=== PATIENT | female | born 1935 | race Caucasian/White ===

== ENCOUNTER → 2017-09-11 | Outpatient (CLI) | payer OTHER ==
[~2017-09-11] MED LIST: ACET-1311 PO; ACET650S10 RE; AMLO2.5T PO; ASPI81TA28 PO; ATEN-173 PO; ATROPS5 OP; ATV1 SL; BISA10SU38 PR; BUSP-8 PO; CHOL20005 PO; DRGTP12 TD; GUAI1LIQ16 PO; IMD/2 PO; IPRA-64 INH; LEVO88TA3 PO; MELA3TAB PO; MOMLX PO; NTRGSLP4 SL; POTA-639 PO; RXNS10 PO; SCOP1.5D2 TD; SODIENE PR; [UNRECOGNIZED DRUG - OTHER] PO
[2017-09-11 10:00] LABS: BASO % 1.2 %; BASO ABS # 0.08 K/uL (0-0.2); EOS % 6.1 %; HEMATOCRIT 39.1 % (37-47); HEMOGLOBIN 12.6 g/dL (12.0-16.0); IG# 0.02 K/uL (0.00-0.02); LYMPH % 22.8 %; MEAN CELL VOLUME 83.4 fL (80-100); MEAN CORPUSCULAR HEMOGLOBIN 26.9 pg (25-34); MEAN CORPUSCULAR HGB CONC 32.2 g/dl (32-36); MONO ABS # 0.79 K/uL (0.11-0.59); NEUT % 57.6 %; PLATELET COUNT 239 K/uL (130-400); RED CELL DISTRIBUTION WIDTH SD 56.8 fL (36.4-46.3); WHITE BLOOD COUNT 6.59 K/uL (4.8-10.8)
[2017-09-11 10:08] LABS: BLOOD UREA NITROGEN 16 mg/dl (7-18); CALCIUM 9.1 mg/dl (8.5-10.1); CARBON DIOXIDE 28 mmol/L (21-32); CREATININE 0.85 mg/dl (0.60-1.20); GLUCOSE 104 mg/dl (70-99); POTASSIUM 4.3 mmol/L (3.5-5.1); SODIUM 139 mmol/L (136-145)
--- NOTE | 2017-10-12 08:48 | CODING QUERY NO DIAGNOSIS ---
TREATMENT RENDERED WITHOUT A DIAGNOSIS Wallace A P MANAGER, To promote full compliance with coding requirements relating to patient care, physician participation is requested in all cases of dollyman uncertainty. Please assist us with providing a diagnosis/symptom for the test(s) below: A diagnosis/symptom was not documented on your Order. A valid diagnosis/symptom is required to bill all insurances. Please remember that we are unable to code a diagnosis of rule out, probable, possible, questionable, or suspected. Tests that require a diagnosis: * CBC W/AUTO DIFF DIAGNOSIS: * BMP DIAGNOSIS: * TSH DIAGNOSIS: DATE OF SERVICE: 09/11/17 Provider Signature: Date: Thank you Victorino Simon [facility] Information Management Once completed, please kindly fax back to [phone] For questions please call [phone]
== END | disposition home or self-care (01) ==
LOC: C.LABUPNIT 09:13
PROVIDERS: ATTEND Nurse Practitioner Family
DX: R41.82 Altered mental status, unspecified (principal); E03.9 Hypothyroidism, unspecified

== ENCOUNTER → 2017-09-18 | Outpatient (CLI) | payer OTHER ==
[2017-09-18 08:58] LABS: BLOOD UREA NITROGEN 16 mg/dl (7-18); BUN/CREATININE RATIO 20.5 (10-20); CALCIUM 8.9 mg/dl (8.5-10.1); CARBON DIOXIDE 24 mmol/L (21-32); CHLORIDE 110 mmol/L (98-107); CREATININE 0.77 mg/dl (0.60-1.20); GLUCOSE 92 mg/dl (70-99); POTASSIUM 3.9 mmol/L (3.5-5.1); SODIUM 142 mmol/L (136-145)
[2017-09-18 16:46] LABS: URINE APPEARANCE CLEAR (CLEAR); URINE BILIRUBIN NEG (NEG); URINE COLOR DK YELLOW; URINE EPITHELIAL CELL AUTO 0-5 /lpf (0-5); URINE NITRITE POS (NEG); URINE SPECIFIC GRAVITY 1.027 (1.000-1.030); UROBILINOGEN NEG (NEG)
[2017-09-18 16:47] LABS: MANUAL MICROSCOPIC REQUIRED? NO; REVIEW REQ? NO
== END ==
LOC: C.LABUPNIT 08:27
PROVIDERS: ATTEND Nurse Practitioner Family
DX: I25.119 Atherosclerotic heart disease of native coronary artery with unspecified angina pectoris (principal)

== ENCOUNTER → 2017-10-03 | Outpatient (CLI) | payer OTHER ==
[2017-10-03 19:17] LABS: URINE APPEARANCE CLEAR (CLEAR); URINE BILIRUBIN NEG (NEG); URINE COLOR YELLOW; URINE EPITHELIAL CELL AUTO 20-30 /lpf (0-5); URINE NITRITE NEG (NEG); URINE SPECIFIC GRAVITY 1.028 (1.000-1.030); UROBILINOGEN NEG (NEG)
[2017-10-03 19:20] LABS: MANUAL MICROSCOPIC REQUIRED? NO; REVIEW REQ? YES
[2017-10-03 19:46] LABS: ZZUR CULT IF INDIC CLEAN CATCH YES
== END | disposition home or self-care (01) ==
LOC: C.LABUPNIT 17:48
PROVIDERS: ATTEND Nurse Practitioner Family
DX: N39.0 Urinary tract infection, site not specified (principal)

== ENCOUNTER → 2017-10-04 | Outpatient (CLI) | payer OTHER ==
[2017-10-04 08:56] LABS: ALT/SGPT 14 U/L (12-78); AST/SGOT 20 U/L (15-37); BLOOD UREA NITROGEN 13 mg/dl (7-18); BUN/CREATININE RATIO 21.9 (10-20); CALCIUM 8.3 mg/dl (8.5-10.1); CARBON DIOXIDE 23 mmol/L (21-32); CHLORIDE 113 mmol/L (98-107); CREATININE 0.59 mg/dl (0.60-1.20); GLUCOSE 84 mg/dl (70-99); POTASSIUM 3.9 mmol/L (3.5-5.1); SODIUM 143 mmol/L (136-145)
[2017-10-04 08:58] LABS: ALB/GLOB RATIO 0.8 (0.9-2); ALKALINE PHOSPHATASE 78 U/L (45-117)
== END ==
LOC: C.LAB 08:10
PROVIDERS: ATTEND Nurse Practitioner Family
DX: I10 Essential (primary) hypertension (principal)

== ENCOUNTER → 2017-10-12 | Outpatient (CLI) | payer OTHER | LOC: C.LABUPUNI 08:06 | PROVIDERS: ATTEND Nurse Practitioner Family | DX: E03.9 Hypothyroidism, unspecified (principal) ==

== ENCOUNTER → 2017-10-16 | Outpatient (CLI) | payer OTHER ==
[2017-10-16 09:07] LABS: BLOOD UREA NITROGEN 19 mg/dl (7-18); BUN/CREATININE RATIO 32.4 (10-20); CALCIUM 8.4 mg/dl (8.5-10.1); CARBON DIOXIDE 26 mmol/L (21-32); CHLORIDE 113 mmol/L (98-107); GLUCOSE 85 mg/dl (70-99); POTASSIUM 3.6 mmol/L (3.5-5.1); SODIUM 144 mmol/L (136-145)
== END | disposition home or self-care (01) ==
LOC: C.LABUPUNI 08:43
PROVIDERS: ATTEND Nurse Practitioner Family
DX: G30.9 Alzheimer's disease, unspecified (principal); M85.0 Fibrous dysplasia (monostotic)

== ENCOUNTER 2017-10-30 04:23 | Inpatient (IN) | payer OTHER ==
[2017-10-30] VITALS (77 sets, daily range): BP systolic 58–171; BP diastolic 33–125; PULSE 62–138; TEMP 36.9–39.9; O2SAT 86–99; Ht 157.5 cm; Wt 55.2 kg
[~2017-10-30] VITALS: Ht 157.5 cm; Wt 55.2 kg
[2017-10-30] MEDS ORDERED: BUSP-8 PO (04:57)
[2017-10-30] MEDS ORDERED: ASPI81TA28 PO (04:57)
[2017-10-30] MEDS ORDERED: [UNRECOGNIZED DRUG - OTHER] PO (04:57)
[2017-10-30] MEDS ORDERED: ATEN-173 PO (04:57)
[2017-10-30] MEDS ORDERED: SODIENE PR (04:57)
[2017-10-30] MEDS ORDERED: AMLO2.5T PO (04:57)
[2017-10-30] MEDS ORDERED: CHOL20005 PO (04:57)
[2017-10-30] MEDS ORDERED: MOMLX PO (04:57)
[2017-10-30] MEDS ORDERED: ACET-1311 PO ×2 (04:57)
[2017-10-30] MEDS ORDERED: MELA3TAB PO (04:57)
[2017-10-30] MEDS ORDERED: NTRGSLP4 SL (04:57)
[2017-10-30] MEDS ORDERED: BISA10SU38 PR (04:57)
[2017-10-30] MEDS ORDERED: GUAI1LIQ16 PO (04:57)
[2017-10-30] MEDS ORDERED: IPRASOL4 INH (04:57)
[2017-10-30] MEDS ORDERED: POTA20TA16 PO (04:57)
[2017-10-30] MEDS ORDERED: ACET650S10 RE (04:57)
[2017-10-30] MEDS ORDERED: IMD/2 PO (04:57)
[2017-10-30] MEDS ORDERED: LEVO88TA3 PO (04:57)
[2017-10-30 05:06] LABS: MEAN CELL VOLUME 83.8 fL (80-100); MEAN CORPUSCULAR HEMOGLOBIN 26.7 pg (25-34); MEAN CORPUSCULAR HGB CONC 31.8 g/dl (32-36); MEAN PLATELET VOLUME 11.8 fL (7.4-10.4); PLATELET COUNT 238 K/uL (130-400); RED CELL DISTRIBUTION WIDTH CV 18.4 % (11.5-14.5); RED CELL DISTRIBUTION WIDTH SD 56.3 fL (36.4-46.3); WHITE BLOOD COUNT 22.61 K/uL (4.8-10.8)
[2017-10-30] MEDS ORDERED: CEFEPIME IV 1,000 MG in DEXTROSE 5% 100ML 100 ML IV STA (05:11)
[2017-10-30] MEDS ORDERED: LEVAQUIN 500MG / 100ML D5W IV ONE (05:15)
[2017-10-30 05:22] LABS: CALCIUM 8.8 mg/dl (8.5-10.1); CREATININE 1.44 mg/dl (0.60-1.20); POTASSIUM 4.2 mmol/L (3.5-5.1); PTT PATIENT 27.3 SECONDS (21.0-31.0)
[2017-10-30 05:28] LABS: INFLUENZA B ANTIGEN Neg for Influ B (NEG)
[2017-10-30] MEDS ORDERED: PIPERACILLIN/TAZOBACTAM 4.5 GM/100ML D5W IV STA (05:40)
[2017-10-30] MEDS ORDERED: METHYLPREDNISOLONE IV 20 MG in SYRINGE 0 ML IV STA (05:40)
[2017-10-30] MEDS ORDERED: LEVALBUTEROL/IPRATROPIUM NEB INH STA (05:40)
[2017-10-30] MEDS ORDERED: SODIUM CHLORIDE 0.45% 1000ML 1,000 ML IV ONE (05:45)
[2017-10-30 05:46] LABS: BASO % 0.1 %; BASO ABS # 0.02 K/uL (0-0.2); LYMPH % 1.9 %; LYMPH ABS # 0.43 K/uL (1.2-3.4); MONO % 4.2 %; MONO ABS # 0.96 K/uL (0.11-0.59); NEUT % 93.4 %
[2017-10-30] MEDS ORDERED: INSULIN GLARGINE SOLOSTAR 100 UNITS/ML 3 ML PEN SC STA (05:48)
[2017-10-30] MEDS ORDERED: SODIUM CHLORIDE 0.9% 1000ML 1,000 ML IV STA (05:48)
[2017-10-30] MEDS ORDERED: IPRATROPIUM BROMIDE NEB SOLN 0.02% 2.5 ML VIAL INH STA (05:50)
[2017-10-30] MEDS ORDERED: LEVALBUTEROL 1.25MG/0.5ML NEB INH STA (05:50)
[2017-10-30] MEDS ORDERED: SUCCINYLCHOLINE CHLORIDE 20 MG/ML 10 ML VIAL IV ONE (06:00)
[2017-10-30] MEDS ORDERED: ETOMIDATE 2 MG/ML 20 ML VIAL IV ONE ×2 (06:00→15:45)
[2017-10-30] MEDS ORDERED: GLUCOSE 40% GEL 15 GM TUBE PO PRN (06:15)
[2017-10-30] MEDS ORDERED: TRAMADOL HCL 50 MG TAB PO PRN (06:15)
[2017-10-30] MEDS ORDERED: PROCHLORPERAZINE INJ 5 MG in SYRINGE 4 ML IV PRN (06:15)
[2017-10-30] MEDS ORDERED: ACETAMINOPHEN 325 MG TAB PO PRN (06:15)
[2017-10-30] MEDS ORDERED: NITROGLYCERIN 0.4 MG SL PER TAB CHARGE SL PRN (06:15)
[2017-10-30] MEDS ORDERED: LEVALBUTEROL/IPRATROPIUM NEB INH PRN (06:15)
[2017-10-30] MEDS ORDERED: GLUCOSE 10 TABS/TUBE PO PRN (06:15)
[2017-10-30] MEDS ORDERED: GLUCAGON FOR INJ 1 MG VIAL SQ PRN (06:15)
[2017-10-30] MEDS ORDERED: DEXTROSE 50% 50 ML SYR IV PRN (06:15)
[2017-10-30] MEDS ORDERED: HALOPERIDOL LACTATE 5 MG/ML 1 ML VIAL IM ONE (06:46)
--- NOTE | 2017-10-30 06:49 | DIAGNOSTIC IMAGING REPORT ---
CHEST ONE VIEW PORTABLE CLINICAL HISTORY: Sepsis dyspnea COMPARISON STUDY: No previous studies for comparison. FINDINGS: Mild cardiomegaly. Small external hernia. Ankle infiltrate left base. Mild atelectasis right base. IMPRESSION: Infiltrate left base. Mild platelike atelectasis right base. The above report was generated using voice recognition software. It may contain grammatical, syntax or spelling errors. Electronically signed by: Destin Jason M.D. 10/30/2017 6:48 AM Dictated Date/Time: 10/30/2017 6:47 AM
[2017-10-30] MEDS ORDERED: HALOPERIDOL LACTATE 5 MG/ML 1 ML VIAL ONE (06:52)
[2017-10-30] MEDS ORDERED: HALOPERIDOL 1 MG TAB PO PRN (07:00)
[2017-10-30] MEDS ORDERED: SODIUM CHLORIDE 0.45% 1000ML 1,000 ML IV SCH ×3 (07:00→08:00)
[2017-10-30] MEDS ORDERED: HALOPERIDOL LACTATE 5 MG/ML 1 ML VIAL IM PRN (07:00)
--- NOTE | 2017-10-30 07:29 | HISTORY & PHYSICAL EXAMINATION ---
DATE OF ADMISSION: 10/30/[address] Pham Patient is a [facility] resident. CHIEF COMPLAINT: Shortness of breath and congestion as per records, hypoxemia. HISTORY OF PRESENT ILLNESS: History obtained from ER provider, records. Unable to obtain history secondary to demented state. Medical history significant for dementia, CAD as per records, hypothyroidism. As per records, yesterday, patient noted to have increasing shortness of breath after witnessed aspiration during breakfast. Patient later on noted to be tachycardic , tachypneic, and hypoxemic. At the Emergency Room, the patient received Levaquin. MEDICAL HISTORY: As above. SURGERIES: Could not be obtained. HOME MEDICATIONS: Include aspirin, Tylenol, Norvasc, atenolol, Dulcolax, buspirone, vitamin D3, Tussin, DuoNebs, levothyroxine, Imodium, melatonin, milk of mag, Nitrostat, Klor-Con. ALLERGIES: No known drug allergies. FAMILY HISTORY: Cannot be obtained. PERSONAL AND SOCIAL HISTORY: custodial resident. REVIEW OF SYSTEMS: Could not be obtained. PHYSICAL EXAMINATION: VITAL SIGNS: Blood pressure was noted to be 113/60, pulse rate 129, RR 26, temperature 38, sats 87 on room air. GENERAL: Noted to be in min resp distress, demented. Hyposthenic. SKIN: Normal color, warm. HEENT: Hartrandt palpebral conjunctivae. No ptosis. Dry mucosa. CHEST: Expiratory wheezes, rhonchi. HEART: Tachycardic, palpable LE pulses. ABDOMEN: Soft, nontender. EXTREMITIES: No edema, no tenderness. No other gross deformities. NEUROLOGIC: Demented. No facial asymmetry. LABORATORY DATA: Hemoglobin was noted to be 14, hematocrit 44, white blood cells 22.6, platelets noted to be 148. Sodium noted to be 154, potassium 4.2, chloride 131, CO2 20, BUN 37, creatinine 1.44, glucose 201. Point of care lactate is 5.8. Chest x-ray as per my interpretation possible infiltrate left, atelectasis. EKG as per my interpretation sinus tachycardia, T-wave inversions in inferior leads, incomplete right bundle block. ASSESSMENT: 1. Acute hypoxic respiratory failure secondary to healthcare associated pneumonia, possible aspiration. 2. severe sepsis SIRS plus hypoxemia plus lactic acidemia secondary to pneumonia 3. CAD as per records 4. Dementia. 5. Hypothyroidism. Unknown status, TSH pending. 6. Acute renal failure secondary to illness. 7. Hyperglycemia, rule out diabetes. PLAN: PCU supplemental O2 baseline ABG. Zosyn, Vancomycin swallow eval, aspiration precautions. IV fluids. Follow lactic acid. Nebs RTC, prn Solu-Medrol for 1 dose for bronchospasm Baseline UA, monitor creatinine response IV fluids ISS BG goal 140-180. Check hemoglobin A1c. Follow TSH DVT prophylaxis, Heparin subQ. Full code as per previous family's wishes as per son, Mr. Herber Solis. He requests updates from providers at [phone]. Total critical care time was 50 minutes. MTDD
[2017-10-30] MEDS ORDERED: VANCOMYCIN INJ 1,000 MG in SODIUM CHLORIDE 0.9% 250ML 250 ML IV STA (07:34)
[2017-10-30] MEDS ORDERED: METOPROLOL TARTRATE 1 MG/ML VIAL IV STA ×2 (07:35→07:57)
--- NOTE | 2017-10-30 07:38 | Progress Note ---
Progress Note Post Crystalloid Evaluation Date: Oct 30, 2017 Time: 07:45 Subjective Increased respiratory distress as per RN upon arrival at PCU Physical Exam Vital Signs: Vital Signs Date Time Temp Pulse Resp B/P (MAP) Pulse Ox O2 Delivery O2 Flow Rate FiO2 10/30/17 06:30 138 28 123/84 92 10/30/17 05:00 Room Air 10/30/17 04:55 4.0 10/30/17 04:55 37.3 Lungs: + respiratory distress Heart: + tachycardia Peripheral Pulse: Weak Capillary Refill: Delayed (2 seconds or longer) Skin: [place] Assessment & Plan Presence of: Severe Sepsis Severe sepsis SIRS plus hypoxemia plus lactic acidemia secondary to HCAP, possible aspiration ICU transfer Follow lactic acid, IVF Continue Zosyn, Vancomycin Case discussed with ladies suit operator on-call, Dr. Higuera. Patient's son updated over the phone. Full code status reaffirmed
[2017-10-30] MEDS ORDERED: LEVALBUTEROL 1.25MG/0.5ML NEB INH PRN (07:45)
[2017-10-30] MEDS ORDERED: INSULIN ASPART 100 UNITS/ML 3 ML PEN SC ONE (07:45)
[2017-10-30] MEDS ORDERED: LEVOTHYROXINE 88 MCG TAB PO SCH (07:45)
[2017-10-30] MEDS ORDERED: IPRATROPIUM BROMIDE NEB SOLN 0.02% 2.5 ML VIAL INH PRN (07:45)
[2017-10-30] MEDS ORDERED: PIPERACILL/TAZOBAC CONSULT ACTIVE PRN (07:45)
[2017-10-30] MEDS ORDERED: VANCOMYCIN CONSULT ACTIVE PRN (07:45)
[2017-10-30 07:52] LABS: HEMOGLOBIN A1C 5.8 % (4.5-5.6)
[2017-10-30] MEDS ORDERED: METHYLPREDNISOLONE IV 20 MG in SYRINGE 0 ML IV SCH (07:57)
[2017-10-30] MEDS ORDERED: PHARMACY GLYCEMIC MGMT CONSULT PRN (08:04)
--- NOTE | 2017-10-30 08:16 | Progress Note ---
Progress Note Date of Service Oct 30, 2017. Progress Note ATTENDING ADDENDUM : pt evaluated at bedside for worsening of hypoxia, tachycardia , hypotension pt remains obtunded , tachypneic ,sinus tachycardia on monitor diminished breath sound on both sided , + rales at base Lactic acid ~8 severe sepsis , due to aspiration pneumonia ordered for strict NPO including meds pt will be transferred to ICU for higher level of care Updated son over phone -pt does not have a living will or advanced directive wants to have mechanical ventilation , CPR /cardiac shock -full resuscitative status if needed updated son that with pt's multiple co morbidities -full resuscitation may not provide good outcome son is aware , wants pt to be Full code Pt is a FULL CODE as per family's wish
[2017-10-30] MEDS: ACETAMINOPHEN IV 100 ML IV PRN ×2 (08:58→21:56)
[2017-10-30] MEDS: NORMOSOL R 1,000 ML IV SCH ×3 (08:59→16:36)
[2017-10-30] MEDS: IPRATROPIUM BROMIDE NEB SOLN 0.02% 2.5 ML VIAL INH SCH ×3 (09:00→19:10)
[2017-10-30] MEDS ORDERED: ASPIRIN 81 MG ECTAB PO SCH (09:00)
[2017-10-30] MEDS ORDERED: AMLODIPINE BESYLATE 5 MG TAB PO SCH (09:00)
[2017-10-30] MEDS: LEVALBUTEROL 1.25MG/0.5ML NEB INH SCH ×3 (09:00→19:10)
[2017-10-30 09:33] LABS: CALCIUM 8.4 mg/dl (8.5-10.1); CREATININE 1.43 mg/dl (0.60-1.20); POTASSIUM 4.3 mmol/L (3.5-5.1)
[2017-10-30] MEDS ORDERED: NURSING VERBAL MED ORDER STA (09:58)
--- NOTE | 2017-10-30 10:41 | Procedure Note ---
Procedure Note Procedure Date Oct 30, 2017. Central Line Procedure time out: side/site verified, patient ID confirmed, sterile procedure used Consent obtained: emergent consent implied Time of procedure: 10:00 Performed by: attending Indications: poor venous access, central drug admin. Prep: chlorhexadine prep, sterile drape, sterile procedures used Anesthesia: local injection, lidocaine 1% without epi Volume anesthetic (ml's): 5 Central line lumen: triple Central line location: subclavian (L) Additional details: percutaneous placement, ultrasound guidance, Selinger technique used, line sutured, good blood return CXR: other (pending) Complications: none Patient tolerated procedure: well Post-procedure vital signs: reviewed and stable
--- NOTE | 2017-10-30 10:58 | DIAGNOSTIC IMAGING REPORT ---
CHEST ONE VIEW PORTABLE CLINICAL HISTORY: Central line placement. COMPARISON STUDY: Chest radiograph October 30, 2017 4:46 AM. FINDINGS: No pneumothorax is identified status post placement of a left subclavian central line. Catheter tip projects of the distal SVC. Severe levoscoliosis of the lumbar spine is noted. There may be a hiatal hernia. Suspected right basilar opacities are present. There are possible small bilateral pleural effusions. IMPRESSION: 1. No pneumothorax following placement of a left subclavian central line. 2. Bibasilar opacities which favor pneumonia. Radiographic follow up is recommended. 3. Possible small bilateral pleural effusions. Electronically signed by: Richardson Goode M.D. 10/30/2017 10:56 AM Dictated Date/Time: 10/30/2017 10:54 AM
[2017-10-30] MEDS ORDERED: NURSING VERBAL MED ORDER ONE (11:00)
[2017-10-30] MEDS ORDERED: INSULIN ASPART 100 UNITS/ML 3 ML PEN SC SCH (11:00)
[2017-10-30] MEDS ORDERED: LEVALBUTEROL/IPRATROPIUM NEB INH SCH (12:00)
[2017-10-30] MEDS: INSULIN ASPART 100 UNITS/ML 3 ML PEN SC SCH ×2 (12:46→18:00)
[2017-10-30] MEDS: PIPERACILL/TAZOBAC IV 3.375 GM in DEXTROSE 5% 100ML IV SCH (12:47)
[2017-10-30 12:55] LABS: CALCIUM 7.2 mg/dl (8.5-10.1); CREATININE 1.04 mg/dl (0.60-1.20); POTASSIUM 3.4 mmol/L (3.5-5.1)
[2017-10-30] MEDS ORDERED: RAPID SEQUENCE INDUCTION BAG ONE (15:20)
[2017-10-30] MEDS ORDERED: PROPOFOL IV EMULSION 10 MG/ML 100 ML VIAL IV ONE (15:30)
--- NOTE | 2017-10-30 15:37 | Pharmacy Progress Note ---
Glycemic: Assessment & Plan Date of Service Oct 30, 2017. Assessment & Plan Antibiotics: * Patient with possible aspiration pneumonia * Vancomycin load 1000mg once * Vancomycin 750mg q36 starting 10/31 @ 2100 * Will order level as clinically indicated * Zosyn 3.375 q12 adjusted for renal function Patient is a non-diabetic with probable stress/steroid induced hyperglycemia. Will assess need for ongoing basal insulin tomorrow. * Basal insulin: Lantus 10 units this morning and scale ordered tonight of 5 units for BSG > 200 and 0 units if BSG < 200 * Correctional Insulin: Novolog Correction per scale q6h Goal Range: Low 120 mg/dL - High 160 mg/dL Correction Factor: 40 mg/dL/unit * Prandial insulin: Per carb ratio of 1 unit per 15 grams CHO consumed Pharmacy will continue to monitor patient daily and write orders per [facility] inpatient glycemic control protocol. Thanks. * Please note that the plan above was derived based on current level of insulin resistance and hospital stress. These recommendations are appropriate for inpatient admission only. Plan of care upon discharge will need to be reassessed to avoid potential outpatient hypo/hyperglycemia.
--- NOTE | 2017-10-30 15:40 | Procedure Note ---
Procedure Note Procedure Date Oct 30, 2017. Procedure Description Procedure Name: Endotracheal intubation Consent obtained: emergent consent implied Time of procedure: 15:00 Performed by: attending Indications: therapeutic Contraindications: none Description: Patient placed supine, sedated with Etomidate. Pre-oxygenated pt with 100% O2 via BVM Using the Glidescope, I intubated her with 7.5 ET tube. Patient tolerated the procedure well. Found significant amount of thick secretions in the oropharynx. Complications: none Patient tolerated procedure: well Post-procedure vital signs: reviewed and stable
--- NOTE | 2017-10-30 15:54 | Critical Care Consultation ---
Critical Care Consultation Date of Consultation: Oct 30, 2017. Attending Physician: Karissa Rivera M.D. Reason for Consultation: Respiratory failure History of Present Illness This is a 82 year old female with advanced dementia, admitted early this morning to hospital after she appeared to aspirate after breakfast, deteriorated rapidly and was transferred to ICU. She requires supplemental oxygen, aggressive suctioning, has copious secretions in the oropharynx and she seems to be unable to cough them up. She became hypotensive, left subclavian TLC was inserted emergently At 1500 she had to be intubated for severe respiratory distress, hypoxia. The family decided to keep her full code. At baseline she is non-verbal Past Medical/Surgical History Dementia CAD Hypothyroidism Family History No pertinent family history Social History Smoking Status: Unknown if Ever Smoked Allergies Coded Allergies: No Known Allergies (Unverified , 10/30/17) Home Medications Scheduled Amlodipine (Norvasc), 2.5 MG PO QAM Aspirin (Aspirin Ec), 81 MG PO QAM Atenolol (Tenormin), 25 MG PO QAM Bisacodyl (Dulcolax), 1 SUPP AK IF NO BM AFTER MOM. Buspirone Hcl (Buspirone Hcl), 10 MG PO BID Cholecalciferol (Vitamin D3), 2,000 UNITS PO QAM Levothyroxine Sodium (Levothyroxine Sodium), 88 MCG PO QAM Potassium Ext Rel (Klor-Con), 30 MEQ PO QAM [Juice Suppliment], 1 DOSE PO TID Scheduled PRN Acetaminophen (Tylenol), 650 MG PO Q6H PRN for Pain Acetaminophen (Tylenol), 650 MG PO Q4H PRN for Fever Acetaminophen (Tylenol), 650 MG RE Q6H PRN for Pain or Fever Guaifenesin (Tussin Adult), 10 ML PO Q6H PRN for Cough Ipratropium-Albuterol (Duoneb), 1 TREATMENT INH Q6H PRN for SOB/CONGESTION Loperamide Hcl (Imodium), 2 MG PO Q8 PRN for Diarrhea Magnesium Hydroxide (Milk of Magnesia), 30 ML PO DAILY PRN for NO BM IN 72 HOURS. Melatonin (Melatonin), 3 MG PO HS PRN for Sleep Nitroglycerin (Nitrostat), 0.4 MG SL Q5MIN X 2 DOSES PRN for Chest Pain Sodium Phosphate/Biphosphate (Fleet Enema), 1 EA AK DAILY PRN for NO BM AFTER SUPP & MOM Current Inpatient Medications Current Inpatient Medications Medications (Trade) Dose Ordered Sig/Chase Route Start Time Stop Time Status Last Admin Dose Admin Heparin Sodium (Porcine) (Heparin Sq 5000 Unit/0.5ml) 5,000 unit Q8 SQ 10/30/17 14:00 11/29/17 13:59 Acetaminophen (Tylenol Tab) 650 mg Q4H PRN PO 10/30/17 06:15 11/29/17 06:14 Nitroglycerin (Nitrostat Tab) 0.4 mg UD PRN SL 10/30/17 06:15 11/29/17 06:14 Glucose (Glucose 40% Gel) 15-30 GRAMS 15 GRAMS... UD PRN PO 10/30/17 06:15 11/29/17 06:14 Glucose (Glucose Chew Tab) 4-8 Tablets 4 Tabl... UD PRN PO 10/30/17 06:15 11/29/17 06:14 Dextrose (Dextrose 50% 50ML Syringe) 25-50ML OF 50% DW IV FOR... UD PRN IV 10/30/17 06:15 11/29/17 06:14 Glucagon (Glucagon Inj) 1 mg UD PRN SQ 10/30/17 06:15 11/29/17 06:14 Vancomycin HCl (Consult) 1 ea UD PRN N/A 10/30/17 07:45 11/29/17 07:44 Amlodipine Besylate (Norvasc Tab) 2.5 mg QAM PO 10/30/17 09:00 11/29/17 08:59 Future Hold Aspirin (Ecotrin Tab) 81 mg QAM PO 10/30/17 09:00 11/29/17 08:59 Future Hold Atenolol (Tenormin Tab) 25 mg QAM PO 10/31/17 09:00 11/30/17 08:59 Future Hold Levothyroxine Sodium (Synthroid Tab) 88 mcg DAILYBB PO 10/30/17 07:45 11/29/17 07:44 Future Hold Buspirone HCl (Buspar Tab) 10 mg BID PO 10/30/17 09:00 11/29/17 08:59 Future Hold Prochlorperazine Edisylate 5 mg/ Syringe 5 ml @ 5 mls/min Q6H PRN IV 10/30/17 06:15 11/29/17 06:14 Tramadol HCl (Ultram Tab) 25 mg Q6H PRN PO 10/30/17 06:15 11/29/17 06:14 Future Hold Haloperidol Lactate (Haldol Inj) 2 mg Q2H PRN IM 10/30/17 07:00 11/29/17 06:59 Future Hold Haloperidol (Haldol Tab) 2 mg Q4H PRN PO 10/30/17 07:00 11/29/17 06:59 Future Hold Ipratropium [place] (Atrovent 0.02% 0.5MG/2.5ML Neb) 0.5 mg Q6R INH 10/30/17 09:00 11/29/17 08:59 10/30/17 14:03 0.5 MG Levalbuterol (Xopenex 1.25MG/ 0.5ML Neb) 1.25 mg Q6R INH 10/30/17 09:00 11/29/17 08:59 10/30/17 14:03 1.25 MG Ipratropium [place] (Atrovent 0.02% 0.5MG/2.5ML Neb) 0.5 mg Q4H PRN INH 10/30/17 07:45 11/29/17 07:44 Levalbuterol (Xopenex 1.25MG/ 0.5ML Neb) 1.25 mg Q4H PRN INH 10/30/17 07:45 11/29/17 07:44 Piperacillin Sod/ Tazobactam Sod (Consult) 1 ea UD PRN N/A 10/30/17 07:45 11/29/17 07:44 Miscellaneous Information (Consult Glycemic Management Pharmacy) 1 ea UD PRN N/A 10/30/17 08:04 11/29/17 08:03 Acetaminophen 100 ml @ 400 mls/hr Q8H PRN IV 10/30/17 08:45 11/29/17 08:44 10/30/17 08:58 400 MLS/HR Norepinephrine Bitartrate 8 mg/ Dextrose 508 ml @ 0 mls/hr Q0M PRN IV 10/30/17 10:15 11/29/17 10:14 Insulin Aspart (novoLOG ASPART) SLIDING SCALE If C... Q6 SC 10/30/17 12:00 11/29/17 11:59 10/30/17 12:46 1 UNITS Piperacillin Sod/ Tazobactam Sod 3.375 gm/Dextrose 115 ml @ 28.75 mls/ hr Q12H IV 10/30/17 13:00 11/06/17 12:59 10/30/17 12:47 28.75 MLS/HR Vancomycin HCl 750 mg/Sodium Chloride 265 ml @ 125 mls/hr Q36H IV 10/31/17 21:00 11/07/17 20:59 Review of Systems Unable to obtain secondary to dementia Physical Exam Date Time Temp Pulse Resp B/P (MAP) Pulse Ox O2 Delivery O2 Flow Rate FiO2 10/30/17 14:03 107 30 93 Mask 7.0 10/30/17 12:00 Oxymask 4.0 10/30/17 11:46 38.0 81 21 85/52 (63) 93 Oxymask 4.0 10/30/17 11:31 38.1 84 20 87/50 (62) 93 Oxymask 4.0 10/30/17 11:25 38.1 81 20 82/51 (61) 92 Oxymask 4.0 10/30/17 11:16 38.1 83 26 80/51 (61) 93 Oxymask 4.0 10/30/17 11:01 38.3 84 20 70/41 (51) 93 Oxymask 4.0 10/30/17 10:46 38.4 100 23 84/51 (62) 92 Oxymask 4.0 10/30/17 10:41 38.5 91 22 70/44 (53) 88 Oxymask 4.0 10/30/17 10:16 38.7 98 28 79/45 (56) 94 Oxymask 4.0 10/30/17 10:05 39.0 104 19 84/54 (64) 95 Oxymask 4.0 10/30/17 10:01 39.1 96 22 61/33 (42) 93 Oxymask 4.0 10/30/17 10:00 39.1 100 21 95 Oxymask 4.0 10/30/17 09:46 39.4 102 22 58/36 (43) 93 Oxymask 4.0 10/30/17 09:37 39.6 115 24 64/41 (49) 95 Oxymask 4.0 10/30/17 09:34 39.7 104 23 66/36 (46) 99 Oxymask 4.0 10/30/17 09:31 39.8 103 25 62/35 (44) 96 Oxymask 4.0 10/30/17 09:16 39.8 135 26 102/75 (84) 92 Oxymask 4.0 10/30/17 09:01 39.9 127 26 101/64 (76) 92 Oxymask 4.0 10/30/17 08:46 39.8 133 26 102/63 (76) 90 Oxymask 4.0 10/30/17 08:31 39.7 31 103/72 (82) 10/30/17 08:28 39.8 135 22 101/68 (79) 10/30/17 08:11 107 21 83/47 (59) 10/30/17 07:11 36.9 138 36 104/66 92 Nasal Cannula 4.0 10/30/17 06:30 138 28 123/84 92 10/30/17 05:00 87 Room Air 10/30/17 04:55 93 Nasal Cannula 4.0 10/30/17 04:55 37.3 139 26 113/73 92 Nasal Cannula 4.0 10/30/17 04:37 141 General: Elderly female, intubated Heent: NC/AT, ET tube Lungs: extensive b/l rhonchi CVS: S1S2 reg Abd: Soft, non-distended Ext: No edema NUISANCE ANIMAL DAMAGE CONTROL AGENT: prior to intubation she was non-verbal, but was moving both sides, reaching appropriately, grasping Laboratory Results Last 24 Hours Test 10/30/17 04:45 10/30/17 04:51 10/30/17 05:00 10/30/17 05:10 White Blood Count 22.61 K/uL Red Blood Count 5.25 M/uL Hemoglobin 14.0 g/dL Hematocrit 44.0 % Mean Corpuscular Volume 83.8 fL Mean Corpuscular Hemoglobin 26.7 pg Mean Corpuscular Hemoglobin Concent 31.8 g/dl Platelet Count 238 K/uL Mean Platelet Volume 11.8 fL Neutrophils (%) (Auto) 93.4 % Lymphocytes (%) (Auto) 1.9 % Monocytes (%) (Auto) 4.2 % Eosinophils (%) (Auto) 0.0 % Basophils (%) (Auto) 0.1 % Neutrophils # (Auto) 21.10 K/uL Lymphocytes # (Auto) 0.43 K/uL Monocytes # (Auto) 0.96 K/uL Eosinophils # (Auto) 0.00 K/uL Basophils # (Auto) 0.02 K/uL RDW Standard Deviation 56.3 fL RDW Coefficient of Variation 18.4 % Immature Granulocyte % (Auto) 0.4 % Immature Granulocyte # (Auto) 0.10 K/uL Prothrombin Time 10.6 SECONDS Prothromb Time International Ratio 1.0 Activated Partial Thromboplast Time 27.3 SECONDS Partial Thromboplastin Ratio 1.1 Sodium Level 153 mmol/L Potassium Level 4.2 mmol/L Chloride Level 121 mmol/L Carbon Dioxide Level 23 mmol/L Anion Gap 9.0 mmol/L Blood Urea Nitrogen 33 mg/dl Creatinine 1.44 mg/dl Est Creatinine Clear Calc Drug Dose 21.3 ml/min Estimated GFR () 38.8 Estimated GFR (Non- 33.5 BUN/Creatinine Ratio 22.9 Random Glucose 201 mg/dl Calcium Level 8.8 mg/dl Magnesium Level 2.3 mg/dl Total Bilirubin 0.7 mg/dl Aspartate Amino Transf (AST/SGOT) 19 U/L Alanine Aminotransferase (ALT/SGPT) 15 U/L Alkaline Phosphatase 84 U/L Troponin I 0.019 ng/ml Total Protein 8.0 gm/dl Albumin 3.0 gm/dl Globulin 5.0 gm/dl Albumin/Globulin Ratio 0.6 Bedside Lactic Acid Venous 5.13 mmol/L Influenza Type A Antigen Neg for Influ A Influenza Type B Antigen Neg for Influ B Urine Color DK YELLOW Urine Appearance CLOUDY Urine pH 5.0 Urine Specific [place] 1.025 Urine Protein 1+ Urine Glucose (UA) NEG Urine Ketones NEG Urine Occult Blood TRACE Urine Nitrite NEG Urine Bilirubin NEG Urine Urobilinogen NEG Urine Leukocyte Esterase NEG Urine WBC (Auto) 1-5 /hpf Urine RBC (Auto) 0-4 /hpf Urine Hyaline Casts (Auto) 5-10 /lpf Urine Epithelial Cells (Auto) >30 /lpf Urine Bacteria (Auto) 1+ Urine Renal Epithelial Cells /lpf Test 10/30/17 06:53 10/30/17 07:36 10/30/17 07:46 10/30/17 08:58 Estimated Average Glucose 120 mg/dl Hemoglobin A1c 5.8 % Lactic Acid Level 8.2 mmol/L Thyroid Stimulating Hormone (TSH) 0.658 uIu/ml Bedside Glucose 315 mg/dl Arterial Blood pH 7.41 Arterial Blood Partial Pressure CO2 27 mmHg Arterial Blood Partial Pressure O2 49 mm/Hg Arterial Blood HCO3 17 mmol/L Arterial Blood Oxygen Saturation 83.8 % Arterial Blood Base Excess -6.7 mEq/L Arterial Blood Gas Delivery 4 L Dav Test POS Sodium Level 149 mmol/L Potassium Level 4.3 mmol/L Chloride Level 118 mmol/L Carbon Dioxide Level 18 mmol/L Anion Gap 13.0 mmol/L Blood Urea Nitrogen 33 mg/dl Creatinine 1.43 mg/dl Est Creatinine Clear Calc Drug Dose 20.8 ml/min Estimated GFR () 39.2 Estimated GFR (Non- 33.8 BUN/Creatinine Ratio 23.4 Random Glucose 207 mg/dl Calcium Level 8.4 mg/dl Test 10/30/17 12:12 Sodium Level 149 mmol/L Potassium Level 3.4 mmol/L Chloride Level 119 mmol/L Carbon Dioxide Level 19 mmol/L Anion Gap 11.0 mmol/L Blood Urea Nitrogen 30 mg/dl Creatinine 1.04 mg/dl Est Creatinine Clear Calc Drug Dose 28.7 ml/min Estimated GFR () 57.5 Estimated GFR (Non- 49.6 BUN/Creatinine Ratio 29.1 Random Glucose 191 mg/dl Lactic Acid Level 4.3 mmol/L Calcium Level 7.2 mg/dl Diagnostic Results CXR today: 1. No pneumothorax following placement of a left subclavian central line. 2. Bibasilar opacities which favor pneumonia. Radiographic follow up is recommended. 3. Possible small bilateral pleural effusions. Assessment & Plan Problems: Acute respiratory failure Bronchopneumonia Dementia CAD Hypothyroidism Plan: NUISANCE ANIMAL DAMAGE CONTROL AGENT: Sedation with Propofol for now, consider transition to Precedex Avoid benzos Daily sedation vacation Resp: Vent support Elevate head Pulmonary toilet Very high chance of weaning failure, family was made aware of this fact CVS: Continue IV fluids Pressor support Hold antihypertensives Continue ASA Renal: IV fluids ID: Continue broad spectrum Abx On Zosyn, Vanco and Levaquin Follow up cultures Endo: Continue Syntrhoid DVT prophylaxis: Heparin SC Prognosis is poor I discussed the family about end-of-life care options, explained them that most likely this "aggressive care" only leads to more suffering and prolonging the dying process. They opted for the intubation. Critical care time spent with the patient, discussing with the family and consultants, excluding procedures greater than 50 minutes
--- NOTE | 2017-10-30 16:01 | DIAGNOSTIC IMAGING REPORT ---
CHEST ONE VIEW PORTABLE CLINICAL HISTORY: Respiratory failure COMPARISON STUDY: 10/30/2017 FINDINGS: There is an endotracheal tube positioned at the level of the ho. A nasogastric tube has been inserted which passes into the stomach. There is a left subclavian A-Port catheter. There is persistent aortic tortuosity/ectasia. There is scoliosis. There are bilateral perihilar airspace opacity, possibly affecting edema. Small pleural effusions are suspected.[ IMPRESSION: 1. Interval placement of an endotracheal tube which is positioned approximately at the level of the ho 2. Interval placement of a nasogastric tube which passes into the stomach 3. Bilateral perihilar airspace opacities Electronically signed by: Donn Cid M.D. 10/30/2017 3:59 PM Dictated Date/Time: 10/30/2017 3:57 PM
[2017-10-30] MEDS: POTASSIUM CHLR 10 MEQ / WTR 10 MEQ in PREMIXED WATER 100 ML IV SCH ×2 (16:38→18:05)
[2017-10-30] MEDS: HEPARIN SOD 5000 UNIT/0.5 ML CARP SQ SCH ×2 (16:38→21:30)
[2017-10-30 16:47] LABS: CALCIUM 6.7 mg/dl (8.5-10.1); CREATININE 1.01 mg/dl (0.60-1.20); POTASSIUM 3.2 mmol/L (3.5-5.1)
[2017-10-30] MEDS ORDERED: INSULIN GLARGINE SOLOSTAR 100 UNITS/ML 3 ML PEN SC SCH (21:00)
[2017-10-30 21:04] LABS: CALCIUM 6.9 mg/dl (8.5-10.1); CREATININE 0.85 mg/dl (0.60-1.20); POTASSIUM 3.2 mmol/L (3.5-5.1)
[2017-10-30] MEDS: DexMEDEtomidine HCL IV 200 MCG in SODIUM CHLORIDE 0.9% 50ML 48 ML IV PRN (21:30)
[2017-10-30] MEDS ORDERED: VASOPRESSIN INJ 50 UNITS in SODIUM CHLORIDE 0.9% 500ML 500 ML IV PRN (21:34)
[2017-10-30] MEDS: POTASSIUM CHLR 20 MEQ / WTR 20 MEQ in PREMIXED WATER 100 ML IV SCH (22:43)
[2017-10-30] MEDS: FENTANYL 1250MCG/250ML NSS 250 ML IV PRN (22:53)
[2017-10-31] VITALS (61 sets, daily range): BP systolic 81–138; BP diastolic 47–85; PULSE 47–101; TEMP 37.1–38.1; O2SAT 90–98
[2017-10-31] MEDS: PIPERACILL/TAZOBAC IV 3.375 GM in DEXTROSE 5% 100ML IV SCH ×4 (00:15→23:43)
[2017-10-31] MEDS: POTASSIUM CHLR 20 MEQ / WTR 20 MEQ in PREMIXED WATER 100 ML IV SCH (00:18)
[2017-10-31] MEDS: NOREPINEPHRINE BIT INJ 8 MG in DEXTROSE 5% 500ML 500 ML IV PRN ×2 (01:44→16:57)
[2017-10-31] MEDS: IPRATROPIUM BROMIDE NEB SOLN 0.02% 2.5 ML VIAL INH SCH ×3 (02:00→14:41)
[2017-10-31] MEDS: LEVALBUTEROL 1.25MG/0.5ML NEB INH SCH ×3 (02:00→14:41)
[2017-10-31] MEDS: NORMOSOL R 1,000 ML IV SCH ×3 (04:51→23:43)
[2017-10-31] MEDS: INSULIN ASPART 100 UNITS/ML 3 ML PEN SC SCH ×4 (06:00→16:57)
[2017-10-31 06:03] LABS: HEMATOCRIT 33.8 % (37-47); HEMOGLOBIN 10.8 g/dL (12.0-16.0); MEAN CELL VOLUME 82.6 fL (80-100); MEAN CORPUSCULAR HEMOGLOBIN 26.4 pg (25-34); MEAN PLATELET VOLUME 10.7 fL (7.4-10.4); PLATELET COUNT 184 K/uL (130-400); RED CELL DISTRIBUTION WIDTH CV 18.2 % (11.5-14.5); RED CELL DISTRIBUTION WIDTH SD 55.4 fL (36.4-46.3); WHITE BLOOD COUNT 21.47 K/uL (4.8-10.8)
[2017-10-31 06:15] LABS: CALCIUM 6.7 mg/dl (8.5-10.1); CREATININE 0.76 mg/dl (0.60-1.20); POTASSIUM 3.8 mmol/L (3.5-5.1)
[2017-10-31] MEDS: HEPARIN SOD 5000 UNIT/0.5 ML CARP SQ SCH ×3 (06:17→21:52)
--- NOTE | 2017-10-31 08:03 | DIAGNOSTIC IMAGING REPORT ---
CHEST ONE VIEW PORTABLE CLINICAL HISTORY: aspiration pna pneumonitis COMPARISON STUDY: 10/30/2017 FINDINGS: Endotracheal tube 3 cm above the ho. Central catheter positioned in the superior vena cava. Nasogastric tube within the stomach. Similar left basilar parenchymal infiltrate. Slightly progressive right medial basal infiltrate. Unchanging right perihilar infiltrative change. IMPRESSION: Stable left hemithoracic infiltrate. Slightly progressive medial right base infiltrate. Endotracheal tube 3 cm above the ho. The above report was generated using voice recognition software. It may contain grammatical, syntax or spelling errors. Electronically signed by: Destin Jason M.D. 10/31/2017 8:02 AM Dictated Date/Time: 10/31/2017 7:59 AM
[2017-10-31] MEDS ORDERED: VANCOMYCIN INJ 750 MG in SODIUM CHLORIDE 0.9% 250ML 250 ML IV SCH ×2 (08:30→21:00)
[2017-10-31] MEDS: DexMEDEtomidine HCL IV 200 MCG in SODIUM CHLORIDE 0.9% 50ML 48 ML IV PRN (08:34)
[2017-10-31] MEDS ORDERED: CALCIUM CHLORIDE 10% 10 ML SYR IV STA (08:45)
--- NOTE | 2017-10-31 10:15 | EMERGENCY ROOM VISIT NOTE ---
History Report prepared by Kathryn: Aparna Charles Under the Supervision of: Dr. Kelly West D.O. First contact with patient: 04:27 Chief Complaint: SHORTNESS OF BREATH Stated Complaint: SHORT OF BREATH History of Present Illness The patient is an 82 year old female who presents to the Emergency Room with complaints of an episode of shortness of breath starting yesterday. Per EMS, the patient aspirated on her lunch yesterday and became short of breath. They report that she spiked a fever this evening and was sent by [facility]. EMS states that [facility] reported doing a chest x-ray that was clear. They report that she has dementia, is nonverbal and is not far from her neurological baseline. HPI and ROS limited secondary to Dementia. Source of History: EMS History Limited By: dementia Onset: yesterday Position: other (global) Timing: other (episode) Associated Symptoms: + fevers Review of Systems See HPI for pertinent positives & negatives. A total of 10 systems reviewed and were otherwise negative. Past Medical & Surgical Medical Problems: (1) Dementia (2) Respiratory failure, acute Family History No pertinent family history Social History Drug Use: none Housing Status: longterm Occupation Status: retired Current/Historical Medications Scheduled Amlodipine (Norvasc), 2.5 MG PO QAM Aspirin (Aspirin Ec), 81 MG PO QAM Atenolol (Tenormin), 25 MG PO QAM Bisacodyl (Dulcolax), 1 SUPP [place] IF NO BM AFTER MOM. Buspirone Hcl (Buspirone Hcl), 10 MG PO BID Cholecalciferol (Vitamin D3), 2,000 UNITS PO QAM Levothyroxine Sodium (Levothyroxine Sodium), 88 MCG PO QAM Potassium Ext Rel (Klor-Con), 30 MEQ PO QAM [Juice Suppliment], 1 DOSE PO TID Scheduled PRN Acetaminophen (Tylenol), 650 MG PO Q6H PRN for Pain Acetaminophen (Tylenol), 650 MG PO Q4H PRN for Fever Acetaminophen (Tylenol), 650 MG RE Q6H PRN for Pain or Fever Guaifenesin (Tussin Adult), 10 ML PO Q6H PRN for Cough Ipratropium-Albuterol (Duoneb), 1 TREATMENT INH Q6H PRN for SOB/CONGESTION Loperamide Hcl (Imodium), 2 MG PO Q8 PRN for Diarrhea Magnesium Hydroxide (Milk of Magnesia), 30 ML PO DAILY PRN for NO BM IN 72 HOURS. Melatonin (Melatonin), 3 MG PO HS PRN for Sleep Nitroglycerin (Nitrostat), 0.4 MG SL Q5MIN X 2 DOSES PRN for Chest Pain Sodium Phosphate/Biphosphate (Fleet Enema), 1 EA KY DAILY PRN for NO BM AFTER SUPP & MOM Allergies Coded Allergies: No Known Allergies (Unverified , 10/30/17) Physical Exam Vital Signs Date Time Temp Pulse Resp B/P (MAP) Pulse Ox O2 Delivery O2 Flow Rate FiO2 10/30/17 05:00 87 Room Air 10/30/17 04:55 93 Nasal Cannula 4.0 10/30/17 04:55 37.3 139 26 113/73 92 Nasal Cannula 4.0 10/30/17 04:37 141 Physical Exam General: Appears tachypneic. At baseline mental status. HEENT: Head - normocephalic and atraumatic Pupils are equal, round, and reactive to light. Extraocular eye muscles are intact, and sclera are anicteric. Nose - moist nasal mucosa without discharge. Mouth - dry buccal mucosa. Thick yellow mucus. Oropharynx is nonerythematous and there is no tonsillar exudate or edema noted. Neck: Supple; no JVD, nuchal rigidity, cervical lymphadenopathy, or auscultated bruits. Heart: Regular rate and rhythm. There is a normal S1 and S2 with no murmurs, clicks, or gallops appreciated. Lungs: Rhonchus breath sounds bilaterally. Abdomen: Soft, completely nontender, nondistended, with good bowel sounds. There are no palpable pulsatile masses or hepatosplenomegaly. There is no guarding, rigidity, or rebound noted. Extremities: No evidence of cyanosis, clubbing, or edema. There are easily palpable peripheral pulses. Skin: warm and dry with good turgor and no rashes. Medical Decision & Procedures ER Provider Diagnostic Interpretation: CHEST X-RAY: The results were interpreted by me. No cardiomegaly. Let lower lobe infiltrate concerning for pneumonia. Laboratory Results Test 10/30/17 04:45 10/30/17 04:51 10/30/17 05:00 10/30/17 05:10 Immature Granulocyte % (Auto) 0.4 % White Blood Count 22.61 K/uL (4.8-10.8) Red Blood Count 5.25 M/uL (4.2-5.4) Hemoglobin 14.0 g/dL (12.0-16.0) Hematocrit 44.0 % (37-47) Mean Corpuscular Volume 83.8 fL (80-100) Mean Corpuscular Hemoglobin 26.7 pg (25-34) Mean Corpuscular Hemoglobin Concent 31.8 g/dl (32-36) Platelet Count 238 K/uL (130-400) Mean Platelet Volume 11.8 fL (7.4-10.4) Neutrophils (%) (Auto) 93.4 % Lymphocytes (%) (Auto) 1.9 % Monocytes (%) (Auto) 4.2 % Eosinophils (%) (Auto) 0.0 % Basophils (%) (Auto) 0.1 % Neutrophils # (Auto) 21.10 K/uL (1.4-6.5) Lymphocytes # (Auto) 0.43 K/uL (1.2-3.4) Monocytes # (Auto) 0.96 K/uL (0.11-0.59) Eosinophils # (Auto) 0.00 K/uL (0-0.5) Basophils # (Auto) 0.02 K/uL (0-0.2) Immature Granulocyte # (Auto) 0.10 K/uL (0.00-0.02) Prothrombin Time 10.6 SECONDS (9.0-12.0) Prothromb Time International Ratio 1.0 (0.9-1.1) Activated Partial Thromboplast Time 27.3 SECONDS (21.0-31.0) Partial Thromboplastin Ratio 1.1 Total Bilirubin 0.7 mg/dl (0.2-1) Aspartate Amino Transf (AST/SGOT) 19 U/L (15-37) Alanine Aminotransferase (ALT/SGPT) 15 U/L (12-78) Alkaline Phosphatase 84 U/L (45-117) Troponin I 0.019 ng/ml (0-0.045) Total Protein 8.0 gm/dl (6.4-8.2) Albumin 3.0 gm/dl (3.4-5.0) Globulin 5.0 gm/dl (2.5-4.0) Albumin/Globulin Ratio 0.6 (0.9-2) Bedside Lactic Acid Venous 5.13 mmol/L (0.90-1.70) Influenza Type A Antigen Neg for Influ A (NEG) Influenza Type B Antigen Neg for Influ B (NEG) Urine Color DK YELLOW Urine Appearance CLOUDY (CLEAR) Urine pH 5.0 (4.5-7.5) Urine Specific Meredith 1.025 (1.000-1.030) Urine Protein 1+ (NEG) Urine Glucose (UA) NEG (NEG) Urine Ketones NEG (NEG) Urine Occult Blood TRACE (NEG) Urine Nitrite NEG (NEG) Urine Bilirubin NEG (NEG) Urine Urobilinogen NEG (NEG) Urine Leukocyte Esterase NEG (NEG) Urine WBC (Auto) 1-5 /hpf (0-5) Urine RBC (Auto) 0-4 /hpf (0-4) Urine Hyaline Casts (Auto) 5-10 /lpf (0-5) Urine Epithelial Cells (Auto) >30 /lpf (0-5) Urine Bacteria (Auto) 1+ (NEG) Urine Renal Epithelial Cells /lpf (0-5) Laboratory results per my review. Medications Administered Medications (Trade) Dose Ordered Sig/Chase Route Start Time Stop Time Status Last Admin Dose Admin Levofloxacin (Levaquin / D5W) 500 mg NOW ONCE IV 10/30/17 05:15 10/30/17 05:16 DC 10/30/17 05:34 500 MG Piperacillin Sod/ Tazobactam Sod (Zosyn Iv) 4.5 gm NOW STAT IV 10/30/17 05:40 10/30/17 05:49 DC 10/30/17 06:32 4.5 GM Sodium Chloride 1,000 ml @ 500 mls/hr Q2H ONCE IV 10/30/17 05:45 10/30/17 07:44 DC 10/30/17 05:45 500 MLS/HR Procedure 0511: Ordered Cefepime HCl 1000 mg/Dextrose 111 ml @ 200 mls/hr IV. 0515: Ordered Levofloxacin 500 mg IV. 0545: Ordered NSS 1000 ml @ 500 mls/hr Protocol IV. ECG Indication: SOB/dyspnea Rate (beats per minute): 140 Rhythm: sinus tachycardia Findings: PAC, T-wave inversion (Inferiorly, Laterally) Comparison ECG Date: August 01, 2001 Change: T wave inversions are new and rate is much faster. ED Course 0427: Past medical records reviewed. The patient was evaluated in room A11B. A complete history and physical exam was performed. A septic protocol was performed. The patient had chest x-ray which showed a left lower lobe infiltrate. 0511: Ordered Cefepime HCl 1000 mg/Dextrose 111 ml @ 200 mls/hr IV. 0515: Ordered Levofloxacin 500 mg IV. 0534: Discussed the patient's case with Dr. Yeni Pereira. The patient will be evaluated for further management. 0545: Ordered NSS 1000 ml @ 500 mls/hr Protocol IV. The patient remains hemodynamically stable at this time. Medical Decision The patient is an 82 year old female who presents to the Emergency Room with complaints of an episode of shortness of breath starting yesterday. Differential diagnose include sepsis, aspiration pneumonia, UTI. LABS: Lactic acid 5.13 White count 22.6 93% neutrophils Stable H&H Glucose 201 BUN 33 Creatine 1.4 Normal coags Urine has trace blood Negative influenza This is an 82-year-old female patient who is nonverbal and suffers from dementia. She was transported here from [facility] afternoon episode of aspiration, respiratory distress and fever. According to EMS, the patient is a full CODE STATUS. Chest x-ray reveals evidence of a left lower lobe infiltrate. The patient was started on antibiotics as she was felt to be septic. She remained hemodynamically stable and was able to protect her own airway. She maintained stable oxygen saturations with supplemental O2 by nasal cannula. Medication Reconcilliation Current Medication List: was personally reviewed by me Blood Pressure Screening Patient's blood pressure: Normal blood pressure Blood pressure disposition: Did not require urgent referral Consults Time Called: 529 Consulting Physician: Dr. Yeni Pereira Returned Call: 05 Discussed the patient's case with Dr. Yeni Pereira. The patient will be evaluated for further management. Impression Primary Impression: Sepsis Scribe Attestation The scribe's documentation has been prepared under my direction and personally reviewed by me in its entirety. I confirm that the note above accurately reflects all work, treatment, procedures, and medical decision making performed by me. Departure Information Dispostion Being Evaluated By Hospitalist Referrals Primitivo Pham M.D. (PCP) Patient Instructions My [facility] Problem Qualifiers Primary Impression: Sepsis Sepsis type: sepsis due to unspecified organism Qualified Codes: A41.9 - Sepsis, unspecified organism
--- NOTE | 2017-10-31 10:36 | Clinical Documentation Query ---
CLINICAL DOCUMENTATION QUERY Dr. MENA, In your clinical opinion is this patient being managed for: ( x ) Severe sepsis with septic shock requiring IV levophed ( ) Not Agree ( ) Other explanation of clinical findings (Please Explain) ( ) Unable to determine (Please Define) ( ) Need to Discuss The medical record reflects the following clinical findings, treatment, and risk factors. Clinical Indicators: 82 yo female presenting with severe sepsis, pneumonia/aspiration pneumonia. Pt developed hypotension, tachycardia and tachypnea. WBC 22.61, lactic acid 8.2 Treatment: IV levophed, transfer to ICU, IV zosyn, IV vancomycin, intubation/mechanical vent, IV fluids with multiple boluses, IV normosol Risk Factors: age, sepsis, acute respiratory failure, REGGIE, pneumonia/aspiration pneumonia Please clarify and document your clinical opinion in the progress notes and discharge summary. Terms such as "probable", "suspected", "likely", "questionable", "possible", or "still to be ruled out" are acceptable. IF IN AGREEMENT, YOU MUST DOCUMENT ABOVE DIAGNOSTIC STATEMENT IN DAILY PROGRESS NOTES AND DISCHARGE SUMMARY. This document is not part of the patient's record. Thank You, Mar Brito, RN [phone]
[2017-10-31] MEDS ORDERED: CALCIUM CHLORIDE 10% 10 ML SYR ONE (11:15)
[2017-10-31] MEDS: LANSOPRAZOLE SOLUTAB 30 MG PO SCH (11:16)
[2017-10-31] MEDS: PROPOFOL IV EMULSION 10 MG/ML 100 ML VIAL IV PRN ×2 (11:35→23:45)
--- NOTE | 2017-10-31 13:42 | Pharmacy Progress Note ---
Glycemic: Assessment & Plan Date of Service Oct 31, 2017. Assessment & Plan Antibiotics: * Vancomycin * Patient with positive MRSA nasal swab and staph aureus growing in sputum culture * Adjusted to 750mg q24h based on improving renal function * Trough level scheduled for 11/01@ 0800 * Zosyn * Adjusted to 3.375 q8h based on renal function Glycemic * Patient requiring no basal insulin. As previously stated, sugars believed to be elevated on admission due to stress and steroids * Will continue correctional insulin for now * Pharmacy will continue to monitor patient daily and write orders per [facility] inpatient glycemic control protocol. Thanks. * Please note that the plan above was derived based on current level of insulin resistance and hospital stress. These recommendations are appropriate for inpatient admission only. Plan of care upon discharge will need to be reassessed to avoid potential outpatient hypo/hyperglycemia.
[2017-10-31] MEDS: LEValbuterol HFA 15GM INHALER INH SCH ×2 (14:41→21:00)
[2017-10-31] MEDS: IPRATROPIUM BROMIDE HFA INHALER INH SCH ×2 (14:41→21:00)
[2017-10-31] MEDS ORDERED: IMPACT LIQ 1000 ML BAG OG SCH (16:00)
--- NOTE | 2017-10-31 16:24 | Critical Care Progress Note ---
Critical Care Progress Note Date of Service Oct 31, 2017. ICU Day ICU Day Number: [address] Higuera Subjective Remains intubated, on vent support, on pressor support. Still with copious pulmonary secretions. Objective General: Elderly female, intubated Heent: NC/AT, ET tube Lungs: extensive b/l rhonchi CVS: S1S2 reg Abd: Soft, non-distended Ext: No edema SAND BLASTER: Opens eyes occasionally, moving both sides Assessment & Plan Problems: Acute respiratory failure Bronchopneumonia Dementia CAD Hypothyroidism Plan: SAND BLASTER: Sedation with Propofol for now, consider transition to Precedex Avoid benzos Daily sedation vacation Resp: Vent support Elevate head Pulmonary toilet Very high chance of weaning failure, family was made aware of this fact CVS: Continue IV fluids Pressor support Hold antihypertensives Continue ASA Renal: IV fluids ID: Continue broad spectrum Abx On Zosyn, Vanco and Levaquin Follow up cultures Endo: Continue Syntrhoid DVT prophylaxis: Heparin SC Prognosis is poor I discussed the family about end-of-life care options, explained them that most likely this "aggressive care" only leads to more suffering and prolonging the dying process. They opted for the intubation. Critical care time spent with the patient, discussing with the family and consultants, excluding procedures greater than 50 minutes Consults & Procedures Consultants: Problems: Acute respiratory failure Bronchopneumonia Dementia CAD Hypothyroidism Plan: SAND BLASTER: Sedation with Propofol for now. Tried Precedex but developed significant bradycardia Fentanyl Avoid benzos Daily sedation vacation Resp: Vent support Elevate head Pulmonary toilet Very high chance of weaning failure, family was made aware CVS: Continue IV fluids Pressor support Hold antihypertensives Continue ASA Renal: IV fluids ID: Continue broad spectrum Abx. On Zosyn, Vanco and Levaquin Follow up cultures, growing Staph in the sputum. Endo: Continue Synthroid DVT prophylaxis: Heparin SC Prognosis is poor I had an extensive discussion with the family at the bedside, I explained them the situation, the prognosis. They are aware of the therapeutic plan, as well as the option of palliative care, which in my opinion is reasonable Critical care time spent with the patient, discussing with the family and consultants, excluding procedures greater than 35 minutes Procedures: Endotracheal intubation - 10/30/17 Left SC TLC - 10/30/17 Data Medications: Current Inpatient Medications Medications (Trade) Dose Ordered Sig/Chase Route Start Time Stop Time Status Last Admin Dose Admin Heparin Sodium (Porcine) (Heparin Sq 5000 Unit/0.5ml) 5,000 unit Q8 SQ 10/30/17 14:00 11/29/17 13:59 10/31/17 13:30 5,000 UNIT Nitroglycerin (Nitrostat Tab) 0.4 mg UD PRN SL 10/30/17 06:15 11/29/17 06:14 Glucose (Glucose 40% Gel) 15-30 GRAMS 15 GRAMS... UD PRN PO 10/30/17 06:15 11/29/17 06:14 Glucose (Glucose Chew Tab) 4-8 Tablets 4 Tabl... UD PRN PO 10/30/17 06:15 11/29/17 06:14 Dextrose (Dextrose 50% 50ML Syringe) 25-50ML OF 50% DW IV FOR... UD PRN IV 10/30/17 06:15 11/29/17 06:14 Glucagon (Glucagon Inj) 1 mg UD PRN SQ 10/30/17 06:15 11/29/17 06:14 Vancomycin HCl (Consult) 1 ea UD PRN N/A 10/30/17 07:45 11/29/17 07:44 Amlodipine Besylate (Norvasc Tab) 2.5 mg QAM PO 10/30/17 09:00 11/29/17 08:59 Future Hold Aspirin (Ecotrin Tab) 81 mg QAM PO 10/30/17 09:00 11/29/17 08:59 Future Hold Levothyroxine Sodium (Synthroid Tab) 88 mcg DAILYBB PO 10/30/17 07:45 11/29/17 07:44 Future Hold Buspirone HCl (Buspar Tab) 10 mg BID PO 10/30/17 09:00 11/29/17 08:59 Future Hold Prochlorperazine Edisylate 5 mg/ Syringe 5 ml @ 5 mls/min Q6H PRN IV 10/30/17 06:15 11/29/17 06:14 Tramadol HCl (Ultram Tab) 25 mg Q6H PRN PO 10/30/17 06:15 11/29/17 06:14 Future Hold Haloperidol Lactate (Haldol Inj) 2 mg Q2H PRN IM 10/30/17 07:00 2/8/18 06:59 Future Hold Haloperidol (Haldol Tab) 2 mg Q4H PRN PO 10/30/17 07:00 11/29/17 06:59 Future Hold Ipratropium Guild (Atrovent 0.02% 0.5MG/2.5ML Neb) 0.5 mg Q4H PRN INH 10/30/17 07:45 11/29/17 07:44 Levalbuterol (Xopenex 1.25MG/ 0.5ML Neb) 1.25 mg Q4H PRN INH 10/30/17 07:45 11/29/17 07:44 Piperacillin Sod/ Tazobactam Sod (Consult) 1 ea UD PRN N/A 10/30/17 07:45 11/29/17 07:44 Miscellaneous Information (Consult Glycemic Management Pharmacy) 1 ea UD PRN N/A 10/30/17 08:04 11/29/17 08:03 Acetaminophen 100 ml @ 400 mls/hr Q8H PRN IV 10/30/17 08:45 11/29/17 08:44 10/30/17 21:56 400 MLS/HR Norepinephrine Bitartrate 8 mg/ Dextrose 508 ml @ 0 mls/hr Q0M PRN IV 10/30/17 10:15 11/29/17 10:14 10/31/17 01:44 29.9 MLS/HR Insulin Aspart (novoLOG ASPART) SLIDING SCALE If C... Q6 SC 10/30/17 12:00 11/29/17 11:59 10/30/17 12:46 1 UNITS Propofol (Diprivan Iv Emulsion 100ml Vial) 1 dose UD PRN IV 10/30/17 15:34 11/02/17 15:33 10/31/17 11:35 1 DOSE Parenteral Electrolyte Solution 1,000 ml @ 100 mls/hr Q10H IV 10/30/17 16:00 11/29/17 15:59 10/31/17 11:16 100 MLS/HR Dexmedetomidine HCl 200 mcg/ Sodium Chloride 50 ml @ 0 mls/hr Q0M PRN IV 10/30/17 21:00 11/03/17 20:59 10/31/17 08:34 2.2 MLS/HR Vasopressin 50 units/Sodium Chloride 502.5 ml @ 24 mls/hr [id number] PRN IV 10/30/17 21:34 11/29/17 21:33 Fentanyl Citrate 250 ml @ 0 mls/hr Q0M PRN IV 10/30/17 22:45 11/13/17 22:44 10/30/17 22:53 5 MLS/HR Heparin Sodium (Porcine) (Heparin 10 Unit/ ml 5 ml Flush) 5 ml PRN PRN FLUSH 10/31/17 03:30 11/30/17 03:29 Vancomycin HCl 750 mg/Sodium Chloride 265 ml @ 125 mls/hr Q24H IV 10/31/17 08:30 11/07/17 08:29 10/31/17 08:34 125 MLS/HR Piperacillin Sod/ Tazobactam Sod 3.375 gm/Dextrose 115 ml @ 28.75 mls/ hr Q8H IV 10/31/17 09:00 11/07/17 08:59 10/31/17 07:44 28.75 MLS/HR Lansoprazole (Prevacid Solutab) 30 mg QAM PO 10/31/17 09:00 11/30/17 08:59 10/31/17 11:16 30 MG Ipratropium Guild (Atrovent Hfa Inhaler) 4 puffs Q6R INH 10/31/17 15:00 11/30/17 14:59 Levalbuterol (Xopenex Hfa Inhaler) 4 puffs Q6R INH 10/31/17 15:00 11/30/17 14:59 Enteral Nutritional Formula (Impact 1.0 Marco) 1,000 ml 10CC/HR OG 10/31/17 16:00 11/30/17 15:59 I & O: 24-Hour Column 11/01/17 07:59 Intake Total 1651 ml Output Total 250 ml Balance 1401 ml Vital Signs: Date Time Temp Pulse Resp B/P (MAP) Pulse Ox O2 Delivery O2 Flow Rate FiO2 10/31/17 14:30 37.7 54 20 116/59 (78) 96 Mechanical Ventilator 50.0 10/31/17 14:11 50 10/31/17 14:00 37.7 51 20 107/62 (77) 96 Mechanical Ventilator 50.0 10/31/17 13:41 37.7 52 20 117/66 (83) 96 Mechanical Ventilator 50.0 10/31/17 13:30 37.7 60 20 96/47 (63) 95 Mechanical Ventilator 50.0 10/31/17 13:00 37.7 56 20 124/65 (84) 96 Mechanical Ventilator 50.0 10/31/17 12:00 50 10/31/17 12:00 Mechanical Ventilator 50 10/31/17 12:00 37.8 54 20 138/72 (94) 98 Mechanical Ventilator 50.0 10/31/17 11:45 37.8 47 20 120/63 (82) 97 Mechanical Ventilator 50.0 10/31/17 11:44 50 10/31/17 11:30 37.8 101 20 123/85 (98) 98 Mechanical Ventilator 50.0 10/31/17 11:00 37.7 60 20 96/49 (65) 97 Mechanical Ventilator 50.0 10/31/17 10:30 37.6 56 20 126/62 (83) 95 Mechanical Ventilator 50.0 10/31/17 10:00 37.7 53 20 116/66 (83) 96 Mechanical Ventilator 50.0 10/31/17 09:13 37.8 63 20 102/58 (73) 96 Mechanical Ventilator 50.0 10/31/17 09:01 37.9 59 20 102/58 (73) 96 Mechanical Ventilator 50.0 10/31/17 08:55 50 10/31/17 08:31 37.8 55 20 129/70 (89) 97 Mechanical Ventilator 50.0 10/31/17 08:01 37.6 91 20 124/77 (93) 95 Mechanical Ventilator 50.0 10/31/17 08:00 Mechanical Ventilator 50 10/31/17 08:00 50 10/31/17 08:00 Mechanical Ventilator 50 10/31/17 07:31 37.5 61 20 121/69 (86) 96 Mechanical Ventilator 50.0 10/31/17 07:15 50 10/31/17 06:17 37.2 81 20 130/57 (81) 95 Mechanical Ventilator 50.0 10/31/17 06:01 37.3 61 20 113/62 (79) 95 Mechanical Ventilator 50.0 10/31/17 05:46 37.3 59 20 96/60 (72) 95 Mechanical Ventilator 50.0 10/31/17 05:31 37.2 60 20 115/67 (83) 95 Mechanical Ventilator 50.0 10/31/17 05:17 37.2 64 20 109/62 (78) 95 Mechanical Ventilator 50.0 10/31/17 05:07 100 10/31/17 05:02 37.2 75 20 104/63 (77) 92 Mechanical Ventilator 50.0 10/31/17 04:46 37.1 62 20 110/63 (79) Mechanical Ventilator 50.0 10/31/17 04:41 37.1 75 20 128/58 (81) 94 Mechanical Ventilator 50.0 10/31/17 04:32 37.1 75 25 104/58 (73) 90 Mechanical Ventilator 50.0 10/31/17 04:16 37.1 68 19 119/76 (90) 95 Mechanical Ventilator 50.0 10/31/17 04:01 37.1 55 20 111/65 (80) 96 Mechanical Ventilator 50.0 10/31/17 04:00 Mechanical Ventilator 60 10/31/17 04:00 50 10/31/17 03:46 37.2 59 20 94/57 (69) 95 Mechanical Ventilator 50.0 10/31/17 03:31 37.2 58 20 108/68 (81) 96 Mechanical Ventilator 50.0 10/31/17 03:16 37.2 59 20 110/66 (81) 96 Mechanical Ventilator 50.0 10/31/17 03:01 37.3 71 20 123/69 (87) 96 Mechanical Ventilator 50.0 10/31/17 02:46 37.3 65 20 118/66 (83) 97 Mechanical Ventilator 50.0 10/31/17 02:31 37.4 61 20 106/66 (79) 96 Mechanical Ventilator 50.0 10/31/17 02:16 37.5 61 20 99/62 (74) 96 Mechanical Ventilator 50.0 10/31/17 02:01 37.5 64 19 106/62 (77) 96 Mechanical Ventilator 50.0 10/31/17 02:00 100 10/31/17 01:48 37.6 62 20 101/62 (75) 97 Mechanical Ventilator 60.0 10/31/17 01:46 37.6 76 20 102/63 (76) 97 Mechanical Ventilator 60.0 10/31/17 01:45 37.6 79 22 108/67 (81) 96 Mechanical Ventilator 60.0 10/31/17 01:43 37.6 64 20 96/58 (71) 96 Mechanical Ventilator 60.0 10/31/17 01:31 37.6 62 20 81/50 (60) 96 Mechanical Ventilator 60.0 10/31/17 01:16 37.7 63 22 101/65 (77) 94 Mechanical Ventilator 60.0 10/31/17 01:11 37.7 66 23 104/62 (76) 97 Mechanical Ventilator 60.0 10/31/17 01:01 37.8 67 25 96 Mechanical Ventilator 60.0 10/31/17 00:46 37.8 64 21 97/59 (72) 97 Mechanical Ventilator 60.0 10/31/17 00:31 37.9 64 21 96/58 (71) 97 Mechanical Ventilator 60.0 10/31/17 00:16 38.0 66 22 95/57 (70) 97 Mechanical Ventilator 60.0 10/31/17 00:01 Mechanical Ventilator 60 10/31/17 00:01 38.1 62 20 89/54 (66) 96 Mechanical Ventilator 60.0 10/31/17 00:01 60 10/30/17 23:46 38.2 66 21 94/56 (69) 96 Mechanical Ventilator 60.0 10/30/17 23:31 38.3 69 23 91/53 (66) 96 Mechanical Ventilator 60.0 10/30/17 23:16 38.3 71 25 87/53 (64) 96 Mechanical Ventilator 60.0 10/30/17 23:01 38.4 72 22 90/52 (65) 96 Mechanical Ventilator 60.0 10/30/17 22:46 38.4 74 21 101/54 (70) 97 Mechanical Ventilator 60.0 10/30/17 22:42 38.3 71 21 100/64 (76) 95 Mechanical Ventilator 60.0 10/30/17 22:39 38.3 74 21 105/59 (74) 95 Mechanical Ventilator 60.0 10/30/17 22:31 38.3 81 27 117/72 (87) 94 Mechanical Ventilator 60.0 10/30/17 22:16 38.3 77 20 116/65 (82) 96 Mechanical Ventilator 60.0 10/30/17 22:11 38.2 72 20 104/60 (75) 96 Mechanical Ventilator 60.0 10/30/17 22:06 38.2 83 21 101/64 (76) 97 Mechanical Ventilator 60.0 10/30/17 22:06 38.2 83 21 101/64 (76) 97 10/30/17 22:05 100 10/30/17 22:01 38.3 72 21 112/62 (79) 97 Mechanical Ventilator 60.0 10/30/17 21:56 38.3 69 21 115/66 (82) 96 Mechanical Ventilator 60.0 10/30/17 21:54 38.3 72 22 121/66 (84) 97 Mechanical Ventilator 60.0 10/30/17 21:51 38.3 69 23 115/63 (80) 96 Mechanical Ventilator 60.0 10/30/17 21:46 38.4 69 22 103/59 (74) 96 Mechanical Ventilator 60.0 10/30/17 21:41 38.4 69 25 107/62 (77) 97 Mechanical Ventilator 60.0 10/30/17 21:38 38.4 62 25 112/64 (80) 96 Mechanical Ventilator 60.0 10/30/17 21:36 38.4 65 25 103/62 (76) 96 Mechanical Ventilator 60.0 10/30/17 21:33 38.4 76 25 77/49 (58) 94 Mechanical Ventilator 60.0 10/30/17 21:31 38.4 79 26 62/37 (45) 95 Mechanical Ventilator 60.0 10/30/17 21:16 38.3 71 25 88/56 (67) 95 Mechanical Ventilator 60.0 10/30/17 21:01 38.3 79 24 94/56 (69) 10/30/17 20:46 38.3 69 25 93/56 (68) 97 Mechanical Ventilator 60.0 10/30/17 20:46 38.3 69 25 93/56 (68) 97 10/30/17 20:31 38.2 76 25 89/52 (64) 98 Mechanical Ventilator 60.0 10/30/17 20:16 38.2 84 28 83/54 (64) 95 Mechanical Ventilator 60.0 10/30/17 20:01 38.2 81 29 81/56 (64) 95 Mechanical Ventilator 60.0 10/30/17 20:00 Mechanical Ventilator 60 10/30/17 20:00 60 10/30/17 19:46 38.1 90 31 73/49 (57) 94 Mechanical Ventilator 60.0 10/30/17 19:31 38.1 80 27 94/55 (68) 93 Mechanical Ventilator 60.0 10/30/17 19:16 38.1 82 24 90/53 (65) 97 Mechanical Ventilator 80.0 10/30/17 19:10 100 10/30/17 19:01 38.1 86 25 92/55 (67) 97 Mechanical Ventilator 80.0 10/30/17 18:16 38.0 87 23 90/54 (66) 96 Mechanical Ventilator 80.0 10/30/17 18:10 100 10/30/17 18:00 38.0 85 21 92/55 (67) 97 Mechanical Ventilator 80.0 10/30/17 16:07 37.5 96 26 94/65 (75) 96 Mechanical Ventilator 100.0 10/30/17 16:05 37.5 100 30 104/55 (71) 96 Mechanical Ventilator 100.0 10/30/17 16:03 37.5 102 22 97/59 (72) 93 Mechanical Ventilator 100.0 10/30/17 16:01 37.5 97 19 84/45 (58) 91 Mechanical Ventilator 100.0 10/30/17 16:00 100 10/30/17 16:00 96 Mechanical Ventilator 100 10/30/17 15:59 37.5 96 23 87/55 (66) 93 Mechanical Ventilator 100.0 10/30/17 15:57 37.5 90 29 90/54 (66) 91 Mechanical Ventilator 100.0 Laboratory Results: Last 24 Hours Test 10/30/17 15:58 10/30/17 17:57 10/30/17 18:08 10/30/17 20:26 Sodium Level 146 mmol/L 146 mmol/L Potassium Level 3.2 mmol/L 3.2 mmol/L Chloride Level 116 mmol/L 116 mmol/L Carbon Dioxide Level 19 mmol/L 22 mmol/L Anion Gap 11.0 mmol/L 8.0 mmol/L Blood Urea Nitrogen 31 mg/dl 28 mg/dl Creatinine 1.01 mg/dl 0.85 mg/dl Est Creatinine Clear Calc Drug Dose 29.5 ml/min 35.1 ml/min Estimated GFR () 59.6 73.4 Estimated GFR (Non- 51.4 63.4 BUN/Creatinine Ratio 31.0 32.6 Random Glucose 195 mg/dl 139 mg/dl Calcium Level 6.7 mg/dl 6.9 mg/dl Blood Gas Sample Site L Brachial Bedside Blood Gas pH (LAB) 7.37 Bedside Blood Gas pCO2 (LAB) 30 mmHg Bedside Blood Gas pO2 (LAB) 127 mmHg Bedside Blood Gas HCO3 (LAB) 17 meq/L Bedside Blood Gas Total CO2 18 mEq/l Bedside Blood Gas Base Excess (LAB) -8.0 meq/L Bedside Blood Gas O2 Saturation 99.0 % Dav Test NA Oxygen Delivery Device Ventilator Bedside Oxygen Rate (breaths/min) 20 Blood Gas Minute Ventilation 15 Bedside FiO2 100 % Blood Gas Tidal Volume 450 Blood Gas PEEP 10 Bedside Glucose 154 mg/dl Test 10/30/17 20:29 10/30/17 22:05 10/31/17 05:28 10/31/17 06:08 Bedside Glucose 139 mg/dl 114 mg/dl Bedside Glucose (other) 153 mg/dl White Blood Count 21.47 K/uL Red Blood Count 4.09 M/uL Hemoglobin 10.8 g/dL Hematocrit 33.8 % Mean Corpuscular Volume 82.6 fL Mean Corpuscular Hemoglobin 26.4 pg Mean Corpuscular Hemoglobin Concent 32.0 g/dl RDW Standard Deviation 55.4 fL RDW Coefficient of Variation 18.2 % Platelet Count 184 K/uL Mean Platelet Volume 10.7 fL Sodium Level 144 mmol/L Potassium Level 3.8 mmol/L Chloride Level 115 mmol/L Carbon Dioxide Level 21 mmol/L Anion Gap 8.0 mmol/L Blood Urea Nitrogen 26 mg/dl Creatinine 0.76 mg/dl Est Creatinine Clear Calc Drug Dose 39.2 ml/min Estimated GFR () 84.1 Estimated GFR (Non- 72.5 BUN/Creatinine Ratio 33.6 Random Glucose 133 mg/dl Lactic Acid Level 1.9 mmol/L Calcium Level 6.7 mg/dl Magnesium Level 2.0 mg/dl Test 10/31/17 11:24 Bedside Glucose 125 mg/dl CXR today: Stable left hemithoracic infiltrate. Slightly progressive medial right base infiltrate. Endotracheal tube 3 cm above the ho.
[2017-10-31] MEDS: FENTANYL 1250MCG/250ML NSS 250 ML IV PRN (16:57)
--- NOTE | 2017-10-31 17:51 | Progress Note ---
Internal Med Progress Note Date of Service: Oct 31, 2017. Provider Documentation: SUBJECTIVE: pt remains intubated requiring pressors on IV Levophed OBJECTIVE: Vital Signs-as noted below Exam: General-elderly female , frail , cachectic, sedated on vent Eyes-sclera non icteric ENT-ET tube in place , thick copious secretions noted Lungs-+ rales , crackles Heart-regular S1/S2 Abdomen-soft, Extremities-no rash or deformity Neuro-sedated on vent , moving limbs occasionally Lab data as noted below. ASSESSMENT & PLAN: ACUTE HYPOXEMIC RESPIRATORY FAILURE : presented with respiratory failure -tachypnea/hypoxemia -due to aspiration pneumonia sebastian aspiration noted by Nursing during meal required mechanical ventilation for respiratory support Son was contacted prior intubation -aware chance recovery is very poor ; family wants to proceed for aggressive management pt remains intubated thick secretions aspirated cont empiric Abx Cxray shows progressive rt basilar infiltrate,stable left infiltrate SEVERE SEPSIS /WITH SEPTIC SHOCK ON IV PRESSORS /HYPOTENSION : due to aspiration pneumonia-leading to respiratory failure requiring pressors marked leukocytosis , lactic acid level improved with IV hydration on IV Vancomycin /Zosyn very poor prognosis ADVANCED DEMENTIA : was non verbal /minimally communicative as per NH report currently intubated on pressors for severe sepsis very poor out come DVT PROPHYLAXIS Sub q heparin FULL CODE -FAMILY AWARE OF POOR OUT COME DISPOSITION very poor prognosis remains in ICU intubated on pressors , critical illness multiple discussion with Son by myself and Hose Seamer -family aware of the poor outcome , Palliative care option offered son insists on continue to do every thing possible Vital Signs: Date Time Temp Pulse Resp B/P (MAP) Pulse Ox O2 Delivery O2 Flow Rate FiO2 11/01/17 10:07 50 11/01/17 09:45 37.9 80 92/77 (82) 96 11/01/17 09:30 37.8 121 115/87 (96) 97 11/01/17 09:17 37.8 173 134/92 (106) 98 11/01/17 09:16 37.8 176 26 150/95 (113) 97 11/01/17 09:15 37.8 178 98 11/01/17 09:01 37.8 70 132/84 (100) 100 11/01/17 09:00 37.8 66 97 11/01/17 08:45 37.8 56 98/57 (71) 100 11/01/17 08:30 37.7 57 98/56 (70) 100 11/01/17 08:15 37.6 55 103/60 (74) 99 11/01/17 08:01 37.6 58 21 122/67 (85) 98 11/01/17 08:00 37.5 60 15 97 11/01/17 08:00 Mechanical Ventilator 50 11/01/17 07:46 37.5 58 21 117/65 (82) 100 11/01/17 07:45 37.5 58 21 100 11/01/17 07:40 37.5 55 23 113/70 (84) 98 11/01/17 07:31 37.5 76 21 121/78 (92) 11/01/17 07:30 37.5 68 21 11/01/17 07:30 36.9 98 23 127/76 (93) 95 Mechanical Ventilator 50.0 50 11/01/17 07:30 Mechanical Ventilator 50.0 50 11/01/17 07:30 50 11/01/17 07:15 37.5 57 20 98 11/01/17 07:10 50 11/01/17 07:01 37.5 49 20 110/58 (75) 94 11/01/17 07:00 37.5 55 20 94 11/01/17 06:00 37.4 52 20 119/68 (85) 95 11/01/17 05:33 50 11/01/17 04:31 37.2 57 16 116/55 (75) 98 11/01/17 04:00 37.2 52 20 98/50 (66) 94 11/01/17 04:00 50 11/01/17 04:00 37.2 52 20 98/50 (66) 94 11/01/17 04:00 96 Mechanical Ventilator 50 11/01/17 02:01 37.3 76 20 132/68 (89) 94 Mechanical Ventilator 11/01/17 01:56 50 11/01/17 01:00 37.4 55 20 107/69 (82) 94 Mechanical Ventilator 50 11/01/17 00:01 37.4 78 20 100/77 (85) 95 Mechanical Ventilator 50 10/31/17 23:59 96 Mechanical Ventilator 50 10/31/17 23:59 50 10/31/17 23:26 50 10/31/17 23:00 37.5 50 20 104/55 (71) 95 Mechanical Ventilator 50 10/31/17 22:00 37.7 64 20 115/83 (94) 96 Mechanical Ventilator 50 10/31/17 21:00 37.9 55 20 100/71 (81) 95 Mechanical Ventilator 50 10/31/17 20:22 50 10/31/17 20:00 38.0 60 20 99/60 (73) 94 Mechanical Ventilator 50 10/31/17 20:00 50 10/31/17 20:00 50 10/31/17 19:00 38.1 62 20 114/61 (78) 94 10/31/17 18:00 38.0 54 20 92/57 (69) 94 Mechanical Ventilator 50.0 10/31/17 17:30 38.0 59 20 97/56 (70) 94 Mechanical Ventilator 50.0 10/31/17 17:18 38.0 63 20 99/55 (70) 95 Mechanical Ventilator 50.0 10/31/17 17:00 37.9 54 20 123/73 (90) 96 Mechanical Ventilator 50.0 10/31/17 16:54 50 10/31/17 16:30 37.9 54 20 113/67 (82) 96 Mechanical Ventilator 50.0 10/31/17 16:00 37.8 52 20 120/77 (91) 96 Mechanical Ventilator 50.0 10/31/17 16:00 50 10/31/17 16:00 Mechanical Ventilator 50 10/31/17 15:39 37.8 83 20 104/71 (82) 90 Mechanical Ventilator 50.0 10/31/17 15:00 37.7 54 20 122/65 (84) 97 Mechanical Ventilator 50.0 10/31/17 14:30 37.7 54 20 116/59 (78) 96 Mechanical Ventilator 50.0 10/31/17 14:11 50 10/31/17 14:00 37.7 51 20 107/62 (77) 96 Mechanical Ventilator 50.0 10/31/17 13:41 37.7 52 20 117/66 (83) 96 Mechanical Ventilator 50.0 10/31/17 13:30 37.7 60 20 96/47 (63) 95 Mechanical Ventilator 50.0 10/31/17 13:00 37.7 56 20 124/65 (84) 96 Mechanical Ventilator 50.0 10/31/17 12:00 50 10/31/17 12:00 Mechanical Ventilator 50 10/31/17 12:00 37.8 54 20 138/72 (94) 98 Mechanical Ventilator 50.0 10/31/17 11:45 37.8 47 20 120/63 (82) 97 Mechanical Ventilator 50.0 10/31/17 11:44 50 10/31/17 11:30 37.8 101 20 123/85 (98) 98 Mechanical Ventilator 50.0 Lab Results: Results Past 24 Hours Test 11/01/17 05:37 Range/Units White Blood Count 20.78 4.8-10.8 K/uL Red Blood Count 4.03 4.2-5.4 M/uL Hemoglobin 10.5 12.0-16.0 g/dL Hematocrit 32.8 37-47 % Mean Corpuscular Volume 81.4 80-100 fL Mean Corpuscular Hemoglobin 26.1 25-34 pg Mean Corpuscular Hemoglobin Concent 32.0 32-36 g/dl RDW Standard Deviation 53.8 36.4-46.3 fL RDW Coefficient of Variation 17.9 11.5-14.5 % Platelet Count 144 130-400 K/uL Mean Platelet Volume 11.1 7.4-10.4 fL Nucleated RBC Absolute Count (auto) 0.02 0-0 K/uL Nucleated Red Blood Cells % 0.1 % Sodium Level 140 136-145 mmol/L Potassium Level 3.3 3.5-5.1 mmol/L Chloride Level 111 98-107 mmol/L Carbon Dioxide Level 24 21-32 mmol/L Anion Gap 5.0 3-11 mmol/L Blood Urea Nitrogen 16 7-18 mg/dl Creatinine 0.56 0.60-1.20 mg/dl Est Creatinine Clear Calc Drug Dose 56.5 ml/min Estimated GFR () 99.9 Estimated GFR (Non- 86.2 BUN/Creatinine Ratio 27.9 10-20 Random Glucose 107 70-99 mg/dl Calcium Level 7.1 8.5-10.1 mg/dl Magnesium Level 2.1 1.8-2.4 mg/dl Vancomycin Level Trough 6.2 SEE COMMENT mcg/ml
[2017-10-31] MEDS: ACETAMINOPHEN IV 100 ML IV PRN (19:55)
[2017-11-01] VITALS (39 sets, daily range): BP systolic 76–150; BP diastolic 41–95; PULSE 49–178; TEMP 36.9–37.9; O2SAT 94–100
[2017-11-01] MEDS: IPRATROPIUM BROMIDE HFA INHALER INH SCH ×4 (01:56→20:27)
[2017-11-01] MEDS: LEValbuterol HFA 15GM INHALER INH SCH ×4 (01:56→20:27)
[2017-11-01 05:48] LABS: HEMATOCRIT 32.8 % (37-47); HEMOGLOBIN 10.5 g/dL (12.0-16.0); MEAN CELL VOLUME 81.4 fL (80-100); MEAN CORPUSCULAR HEMOGLOBIN 26.1 pg (25-34); MEAN PLATELET VOLUME 11.1 fL (7.4-10.4); NUCLEATED RED BLOOD CELL ABS 0.02 K/uL (0-0); PLATELET COUNT 144 K/uL (130-400); RED CELL DISTRIBUTION WIDTH CV 17.9 % (11.5-14.5); RED CELL DISTRIBUTION WIDTH SD 53.8 fL (36.4-46.3); WHITE BLOOD COUNT 20.78 K/uL (4.8-10.8)
[2017-11-01] MEDS: INSULIN ASPART 100 UNITS/ML 3 ML PEN SC SCH ×2 (05:56)
[2017-11-01] MEDS: HEPARIN SOD 5000 UNIT/0.5 ML CARP SQ SCH ×3 (06:12→21:28)
[2017-11-01 06:30] LABS: CALCIUM 7.1 mg/dl (8.5-10.1); CREATININE 0.56 mg/dl (0.60-1.20); POTASSIUM 3.3 mmol/L (3.5-5.1)
[2017-11-01] MEDS: FENTANYL 1250MCG/250ML NSS 250 ML IV PRN ×2 (06:41→21:29)
[2017-11-01] MEDS ORDERED: VANCOMYCIN TROUGH ONE (08:00)
[2017-11-01] MEDS ORDERED: VANCOMYCIN INJ 1,000 MG in SODIUM CHLORIDE 0.9% 250ML 250 ML IV ONE (08:30)
--- NOTE | 2017-11-01 08:32 | DIAGNOSTIC IMAGING REPORT ---
CHEST ONE VIEW PORTABLE HISTORY: Short of breath. pna/intubation COMPARISON: Chest 10/31/2017. FINDINGS: The patient is rotated on this study. 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 Endotracheal tube terminates 2.9 cm from the ho. Nasogastric tube terminates below the diaphragm. Left subclavian catheter terminates in the expected location of the SVC. This remains unchanged. Small left pleural effusion and left basilar densities persist. Hazy airspace opacity within the right mid to lower lung zone are also unchanged. Mild interstitial pulmonary edema. No pneumothorax. IMPRESSION: 1. No significant change compared to the prior study. 2. Satisfactory support line placement. 3. Mild pulmonary edema and bibasilar airspace opacities persist. Electronically signed by: Benito Foreman M.D. 11/01/2017 8:30 AM Dictated Date/Time: 11/01/2017 8:25 AM
[2017-11-01] MEDS: LANSOPRAZOLE SOLUTAB 30 MG PO SCH (09:10)
[2017-11-01] MEDS: NORMOSOL R 1,000 ML IV SCH ×2 (09:10→21:30)
[2017-11-01] MEDS: PIPERACILL/TAZOBAC IV 3.375 GM in DEXTROSE 5% 100ML IV SCH ×2 (09:22→17:49)
[2017-11-01] MEDS ORDERED: IMPACT LIQ 1000 ML BAG OG PRN (10:00)
[2017-11-01] MEDS ORDERED: NURSING DECISION MEDICATION ORDER SCH (10:15)
[2017-11-01] MEDS ORDERED: AMIODARONE 360MG / 200ML D5W ONE (10:22)
[2017-11-01] MEDS ORDERED: AMIODARONE 150MG / 100ML D5W ONE (10:22)
--- NOTE | 2017-11-01 10:32 | Pharmacy Progress Note ---
Pharmacy Abx Dose Short Note Date of Service Nov 01, 2017. Assessment & Plan Assessment 82 year old female receiving VANCOMCYIN/ZOSYN for treatment of MRSA/aspiration pneumonia Day # 3 of antimicrobial therapy. Plan Vancomycin * Trough level of 6.2 mcg/mL is subtherapeutic in the setting of improving renal function * Change to 750 mg IV every 14 hours @ 2230 after a 1000mg one time reload this morning * Goal trough level for : 15 to 20 mcg/mL * Trough or random level ordered for: 11/03/17 @0200 Zosyn * Continue 3.375 q8 Pharmacy will continue to follow and will adjust dose/frequency as necessary. Thank you.
[2017-11-01] MEDS: POTASSIUM CHLR 10 MEQ / WTR 10 MEQ in PREMIXED WATER 100 ML IV SCH ×2 (11:26→12:35)
[2017-11-01] MEDS ORDERED: AMIODARONE / D5W 200 ML IV SCH (11:45)
[2017-11-01] MEDS ORDERED: NURSING VERBAL MED ORDER ONE (11:45)
[2017-11-01] MEDS ORDERED: AMIODARONE / D5W 100 ML IV SCH (11:45)
--- NOTE | 2017-11-01 14:17 | Progress Note ---
Internal Med Progress Note Date of Service: Nov 01, 2017. Provider Documentation: SUBJECTIVE: pt remains intubated requiring pressors on IV Levophed developed rapid Afib on weaning trial on Amiodarone gtt OBJECTIVE: Vital Signs-as noted below Exam: General-elderly female , frail , cachectic, eyes open , unable to follow command Eyes-sclera non icteric ENT-ET tube in place , thick copious secretions Lungs-+ rales , crackles Heart-regular S1/S2 Abdomen-soft, Extremities-no rash or deformity Neuro- Lab data as noted below. ASSESSMENT & PLAN: ACUTE HYPOXEMIC RESPIRATORY FAILURE : presented with respiratory failure -tachypnea/hypoxemia -due to aspiration pneumonia sebastian aspiration noted by Nursing during meal required mechanical ventilation for respiratory support Son was contacted prior intubation -aware chance recovery is very poor ; family wants to proceed for aggressive management pt remains intubated thick secretions aspirated on empiric Abx Cxray shows progressive rt basilar infiltrate,stable left infiltrate SEVERE SEPSIS /WITH SEPTIC SHOCK ON IV PRESSORS /HYPOTENSION : due to aspiration pneumonia-leading to respiratory failure requiring pressors marked leukocytosis , lactic acid level improved with IV hydration on IV Vancomycin /Zosyn very poor prognosis PAROXYSMAL AFIB : possible due to acute illness, respiratory failure /severe sepsis continued with IV Amiodarone gtt prognosis remains very poor ADVANCED DEMENTIA : was non verbal /minimally communicative as per NH report currently intubated on pressors for severe sepsis very poor out come DVT PROPHYLAXIS Sub q heparin CODE STATUS : discussed with Son over phone -updated regarding cardiac arrhythmia , no evidence of improvement remains on vent support any event of fatal cardiac arrhythmia , cardiac arrest will be terminal for the patient Doing CPR , shock with definitely cause severe trauma to pt -including broken ribs , punctured lungs Son willing to changed to code status -not to resuscitate if pt developed cardiac arrest will cont the current supportive care as it is CODE STATUS CHANGED TO DNR/DNI DISPOSITION very poor prognosis remains in ICU intubated on pressors , critical illness multiple discussion with Son by myself and Bioinformaticist -family aware of the poor outcome , Palliative care consulted asked Son and for a family meeting with my self , metal precision machine assembler and palliative care to discuss the plan of care for the pt Family will be in ICU tomorrow at 11 am Bioinformaticist , Palliative care updated Vital Signs: Date Time Temp Pulse Resp B/P (MAP) Pulse Ox O2 Delivery O2 Flow Rate FiO2 1/12/18 12:00 Mechanical Ventilator 40 11/02/17 12:00 38.1 76 14 114/65 (81) 96 CPAP 40 Mechanical Ventilator 11/02/17 11:05 40 11/02/17 10:23 82 12 143/81 (101) 95 CPAP 40 Mechanical Ventilator 11/02/17 10:05 40 11/02/17 08:00 Mechanical Ventilator 40 11/02/17 08:00 54 20 112/54 (73) 96 Mechanical Ventilator 40 11/02/17 08:00 40 11/02/17 08:00 Mechanical Ventilator 50 11/02/17 07:26 50 11/02/17 06:00 37.8 64 20 131/74 (93) 99 Mechanical Ventilator 50 11/02/17 05:25 50 11/02/17 05:08 37.9 87 16 121/73 (89) 98 Mechanical Ventilator 50 11/02/17 04:00 37.9 71 17 119/58 (78) 97 Mechanical Ventilator 50 11/02/17 04:00 Mechanical Ventilator 50 11/02/17 04:00 50 11/02/17 03:00 37.8 71 20 105/57 (73) 97 Mechanical Ventilator 50 11/02/17 02:20 50 11/02/17 02:00 37.8 79 18 118/75 (89) 98 Mechanical Ventilator 50 11/02/17 01:00 37.8 59 20 85/44 (58) 97 Mechanical Ventilator 50 11/02/17 00:00 Mechanical Ventilator 50 11/02/17 00:00 50 11/02/17 00:00 37.6 61 20 84/49 (61) 100 Mechanical Ventilator 50 11/01/17 22:37 50 11/01/17 22:00 55 20 76/41 (53) 100 Mechanical Ventilator 50 11/01/17 20:28 50 11/01/17 20:00 81 20 94/50 (65) 100 Mechanical Ventilator 50 11/01/17 20:00 99 Mechanical Ventilator 11/01/17 20:00 50 11/01/17 18:30 50 11/01/17 18:00 76 20 93/50 (64) 96 Mechanical Ventilator 50 11/01/17 16:00 50 11/01/17 16:00 100 Mechanical Ventilator 11/01/17 16:00 37.0 54 20 94/58 (70) 100 Mechanical Ventilator 50 11/01/17 13:52 50 11/01/17 13:45 37.7 80 100 11/01/17 13:35 37.7 71 123/82 (96) 100 11/01/17 13:30 37.7 75 123/82 (96) 100 11/01/17 13:15 37.7 64 20 11/01/17 13:00 37.7 67 20 101/58 (72) 100 Lab Results: Results Past 24 Hours Test 11/02/17 05:17 11/02/17 06:03 Range/Units Blood Gas Sample Site L Radial Bedside Blood Gas pH (LAB) 7.47 7.35-7.45 Bedside Blood Gas pCO2 (LAB) 31 35-46 mmHg Bedside Blood Gas pO2 (LAB) 54 80-95 mmHg Bedside Blood Gas HCO3 (LAB) 22 19-24 meq/L Bedside Blood Gas Total CO2 23 24-31 mEq/l Bedside Blood Gas Base Excess (LAB) -1.0 -9-1.8 meq/L Bedside Blood Gas O2 Saturation 90.0 90-95 % Dav Test NA Oxygen Delivery Device Ventilator Bedside Oxygen Rate (breaths/min) 20 Blood Gas Minute Ventilation 9.7 Bedside FiO2 50 % Blood Gas Tidal Volume 450 Blood Gas PEEP 8 White Blood Count 12.61 4.8-10.8 K/uL Red Blood Count 3.77 4.2-5.4 M/uL Hemoglobin 9.8 12.0-16.0 g/dL Hematocrit 30.5 37-47 % Mean Corpuscular Volume 80.9 80-100 fL Mean Corpuscular Hemoglobin 26.0 25-34 pg Mean Corpuscular Hemoglobin Concent 32.1 32-36 g/dl RDW Standard Deviation 53.6 36.4-46.3 fL RDW Coefficient of Variation 18.1 11.5-14.5 % Platelet Count 90 130-400 K/uL Mean Platelet Volume 11.8 7.4-10.4 fL Platelet Estimate DECREASED Sodium Level 140 136-145 mmol/L Potassium Level 3.2 3.5-5.1 mmol/L Chloride Level 108 98-107 mmol/L Carbon Dioxide Level 24 21-32 mmol/L Anion Gap 7.0 3-11 mmol/L Blood Urea Nitrogen 12 7-18 mg/dl Creatinine 0.54 0.60-1.20 mg/dl Est Creatinine Clear Calc Drug Dose 62.4 ml/min Estimated GFR () 101.1 Estimated GFR (Non- 87.3 BUN/Creatinine Ratio 22.3 10-20 Random Glucose 121 70-99 mg/dl Calcium Level 6.8 8.5-10.1 mg/dl Phosphorus Level 0.8 2.5-4.9 mg/dl Magnesium Level 2.1 1.8-2.4 mg/dl
--- NOTE | 2017-11-01 17:07 | Critical Care Progress Note ---
Critical Care Progress Note Date of Service Nov 01, 2017. Attending Dr. Higuera Subjective Remains intubated. Tolerated CPAP for about 20 minutes, developed rapid ventricular response. 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 Also on fentanyl Avoid benzos Daily sedation vacation Resp: Vent support Elevate head Pulmonary toilet Very high chance of weaning failure, family was made aware of this fact Even if she does well on CPAP, extubation is very risky given poor mental status and inability to manage her own secretions Will very likely get reintubated CVS: Continue IV fluids Pressor support Hold antihypertensives Continue ASA Start amiodarone drip for rate control Renal: IV fluids ID: Continue broad spectrum Abx On Zosyn, Vanco and Levaquin Follow up cultures Endo: Continue Syntrhoid DVT prophylaxis: Heparin SC Prognosis is poor Family issued DNR. 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 Tried Precedex but developed significant bradycardia Fentanyl Avoid benzos Daily sedation vacation Resp: Vent support Elevate head Pulmonary toilet Very high chance of weaning failure, family was made aware CVS: Continue IV fluids Pressor support Hold antihypertensives Continue ASA Renal: IV fluids ID: Continue broad spectrum Abx. On Zosyn, Vanco and Levaquin Follow up cultures, growing Staph in the sputum. Endo: Continue Synthroid DVT prophylaxis: Heparin SC Prognosis is poor I had an extensive discussion with the family at the bedside, I explained them the situation, the prognosis. They are aware of the therapeutic plan, as well as the option of palliative care, which in my opinion is reasonable Critical care time spent with the patient, discussing with the family and consultants, excluding procedures greater than 35 minutes Procedures: Endotracheal intubation - 10/30/17 Left SC TLC - 10/30/17 Data Medications: Current Inpatient Medications Medications (Trade) Dose Ordered Sig/Chase Route Start Time Stop Time Status Last Admin Dose Admin Heparin Sodium (Porcine) (Heparin Sq 5000 Unit/0.5ml) 5,000 unit Q8 SQ 10/30/17 14:00 11/29/17 13:59 11/01/17 13:30 5,000 UNIT Nitroglycerin (Nitrostat Tab) 0.4 mg UD PRN SL 10/30/17 06:15 11/29/17 06:14 Glucose (Glucose 40% Gel) 15-30 GRAMS 15 GRAMS... UD PRN PO 10/30/17 06:15 11/29/17 06:14 Glucose (Glucose Chew Tab) 4-8 Tablets 4 Tabl... UD PRN PO 10/30/17 06:15 11/29/17 06:14 Dextrose (Dextrose 50% 50ML Syringe) 25-50ML OF 50% DW IV FOR... UD PRN IV 10/30/17 06:15 11/29/17 06:14 Glucagon (Glucagon Inj) 1 mg UD PRN SQ 10/30/17 06:15 11/29/17 06:14 Vancomycin HCl (Consult) 1 ea UD PRN N/A 10/30/17 07:45 11/29/17 07:44 Amlodipine Besylate (Norvasc Tab) 2.5 mg QAM PO 10/30/17 09:00 11/29/17 08:59 Future Hold Aspirin (Ecotrin Tab) 81 mg QAM PO 10/30/17 09:00 11/29/17 08:59 Future Hold Levothyroxine Sodium (Synthroid Tab) 88 mcg DAILYBB PO 10/30/17 07:45 11/29/17 07:44 Future Hold Buspirone HCl (Buspar Tab) 10 mg BID PO 10/30/17 09:00 11/29/17 08:59 Future Hold Prochlorperazine Edisylate 5 mg/ Syringe 5 ml @ 5 mls/min Q6H PRN IV 10/30/17 06:15 11/29/17 06:14 Tramadol HCl (Ultram Tab) 25 mg Q6H PRN PO 10/30/17 06:15 11/29/17 06:14 Future Hold Haloperidol Lactate (Haldol Inj) 2 mg Q2H PRN IM 10/30/17 07:00 11/29/17 06:59 Future Hold Haloperidol (Haldol Tab) 2 mg Q4H PRN PO 10/30/17 07:00 11/29/17 06:59 Future Hold Ipratropium [place] (Atrovent 0.02% 0.5MG/2.5ML [facility]) 0.5 mg Q4H PRN INH 10/30/17 07:45 11/29/17 07:44 Levalbuterol (Xopenex 1.25MG/ 0.5ML [facility]) 1.25 mg Q4H PRN INH 10/30/17 07:45 11/29/17 07:44 Piperacillin Sod/ Tazobactam Sod (Consult) 1 ea UD PRN N/A 10/30/17 07:45 11/29/17 07:44 Acetaminophen 100 ml @ 400 mls/hr Q8H PRN IV 10/30/17 08:45 11/29/17 08:44 10/31/17 19:55 400 MLS/HR Norepinephrine Bitartrate 8 mg/ Dextrose 508 ml @ 0 mls/hr Q0M PRN IV 10/30/17 10:15 11/29/17 10:14 10/31/17 16:57 26.6 MLS/HR Propofol (Diprivan Iv Emulsion 100ml Vial) 1 dose UD PRN IV 10/30/17 15:34 11/02/17 15:33 10/31/17 23:45 1 DOSE Parenteral Electrolyte Solution 1,000 ml @ 100 mls/hr Q10H IV 10/30/17 16:00 11/29/17 15:59 11/01/17 09:10 100 MLS/HR Vasopressin 50 units/Sodium Chloride 502.5 ml @ 24 mls/hr [id number] PRN IV 10/30/17 21:34 11/29/17 21:33 Fentanyl Citrate 250 ml @ 0 mls/hr Q0M PRN IV 10/30/17 22:45 11/13/17 22:44 11/01/17 06:41 20 MLS/HR Heparin Sodium (Porcine) (Heparin 10 Unit/ ml 5 ml Flush) 5 ml PRN PRN FLUSH 10/31/17 03:30 11/30/17 03:29 Piperacillin Sod/ Tazobactam Sod 3.375 gm/Dextrose 115 ml @ 28.75 mls/ hr Q8H IV 10/31/17 09:00 11/07/17 08:59 11/01/17 09:22 28.75 MLS/HR Lansoprazole (Prevacid Solutab) 30 mg QAM PO 10/31/17 09:00 11/30/17 08:59 11/01/17 09:10 30 MG Ipratropium [place] (Atrovent Hfa Inhaler) 4 puffs Q6R INH 10/31/17 15:00 11/30/17 14:59 11/01/17 14:36 4 PUFFS Levalbuterol (Xopenex Hfa Inhaler) 4 puffs Q6R INH 10/31/17 15:00 11/30/17 14:59 11/01/17 14:36 4 PUFFS Enteral Nutritional Formula (Impact 1.0 Marco) 1,000 ml UD PRN OG 11/01/17 10:00 12/01/17 09:59 Vancomycin HCl 750 mg/Sodium Chloride 265 ml @ 125 mls/hr Q14H IV 11/01/17 22:30 11/08/17 22:29 Amiodarone HCL/ Dextrose 200 ml @ 33.3 mls/hr Q6H1M IV 11/01/17 11:45 11/01/17 17:45 Amiodarone HCL/ Dextrose 200 ml @ 16.7 mls/hr [id number] IV 11/01/17 17:45 12/01/17 17:44 I & O: 24-Hour Column 11/02/17 08:00 Intake Total 1990 ml Output Total 250 ml Balance 1740 ml Vital Signs: Date Time Temp Pulse Resp B/P (MAP) Pulse Ox O2 Delivery O2 Flow Rate FiO2 11/01/17 13:52 50 11/01/17 13:45 37.7 80 100 11/01/17 13:35 37.7 71 123/82 (96) 100 11/01/17 13:30 37.7 75 123/82 (96) 100 11/01/17 13:15 37.7 64 20 11/01/17 13:00 37.7 67 20 101/58 (72) 100 11/01/17 12:45 37.7 71 20 100 11/01/17 12:30 37.8 87 20 95/68 (77) 100 11/01/17 12:15 37.8 72 20 100 11/01/17 12:00 50 11/01/17 12:00 37.6 68 24 96/58 (71) 100 Mechanical Ventilator 50 11/01/17 12:00 37.8 68 20 96/58 (71) 100 11/01/17 12:00 Mechanical Ventilator 50.0 50 11/01/17 11:25 50 11/01/17 10:07 50 11/01/17 09:45 37.9 80 92/77 (82) 96 11/01/17 09:30 37.8 121 115/87 (96) 97 11/01/17 09:17 37.8 173 134/92 (106) 98 11/01/17 09:16 37.8 176 26 150/95 (113) 97 11/01/17 09:15 37.8 178 98 11/01/17 09:01 37.8 70 132/84 (100) 100 11/01/17 09:00 37.8 66 97 11/01/17 08:45 37.8 56 98/57 (71) 100 11/01/17 08:30 37.7 57 98/56 (70) 100 11/01/17 08:15 37.6 55 103/60 (74) 99 11/01/17 08:01 37.6 58 21 122/67 (85) 98 11/01/17 08:00 37.5 60 15 97 11/01/17 08:00 Mechanical Ventilator 50 11/01/17 07:46 37.5 58 21 117/65 (82) 100 11/01/17 07:45 37.5 58 21 100 11/01/17 07:40 37.5 55 23 113/70 (84) 98 11/01/17 07:31 37.5 76 21 121/78 (92) 11/01/17 07:30 37.5 68 21 11/01/17 07:30 36.9 98 23 127/76 (93) 95 Mechanical Ventilator 50.0 50 11/01/17 07:30 Mechanical Ventilator 50.0 50 11/01/17 07:30 50 11/01/17 07:15 37.5 57 20 98 11/01/17 07:10 50 11/01/17 07:01 37.5 49 20 110/58 (75) 94 11/01/17 07:00 37.5 55 20 94 11/01/17 06:00 37.4 52 20 119/68 (85) 95 11/01/17 05:33 50 11/01/17 04:31 37.2 57 16 116/55 (75) 98 11/01/17 04:00 37.2 52 20 98/50 (66) 94 11/01/17 04:00 50 11/01/17 04:00 37.2 52 20 98/50 (66) 94 11/01/17 04:00 96 Mechanical Ventilator 50 11/01/17 02:01 37.3 76 20 132/68 (89) 94 Mechanical Ventilator 11/01/17 01:56 50 11/01/17 01:00 37.4 55 20 107/69 (82) 94 Mechanical Ventilator 50 11/01/17 00:01 37.4 78 20 100/77 (85) 95 Mechanical Ventilator 50 10/31/17 23:59 96 Mechanical Ventilator 50 10/31/17 23:59 50 10/31/17 23:26 50 10/31/17 23:00 37.5 50 20 104/55 (71) 95 Mechanical Ventilator 50 10/31/17 22:00 37.7 64 20 115/83 (94) 96 Mechanical Ventilator 50 10/31/17 21:00 37.9 55 20 100/71 (81) 95 Mechanical Ventilator 50 10/31/17 20:22 50 10/31/17 20:00 38.0 60 20 99/60 (73) 94 Mechanical Ventilator 50 10/31/17 20:00 50 10/31/17 20:00 50 10/31/17 19:00 38.1 62 20 114/61 (78) 94 10/31/17 18:00 38.0 54 20 92/57 (69) 94 Mechanical Ventilator 50.0 10/31/17 17:30 38.0 59 20 97/56 (70) 94 Mechanical Ventilator 50.0 10/31/17 17:18 38.0 63 20 99/55 (70) 95 Mechanical Ventilator 50.0 Laboratory Results: Last 24 Hours Test 11/01/17 00:02 11/01/17 05:37 11/01/17 05:44 11/01/17 11:20 Bedside Glucose (other) 122 mg/dl 107 mg/dl White Blood Count 20.78 K/uL Red Blood Count 4.03 M/uL Hemoglobin 10.5 g/dL Hematocrit 32.8 % Mean Corpuscular Volume 81.4 fL Mean Corpuscular Hemoglobin 26.1 pg Mean Corpuscular Hemoglobin Concent 32.0 g/dl RDW Standard Deviation 53.8 fL RDW Coefficient of Variation 17.9 % Platelet Count 144 K/uL Mean Platelet Volume 11.1 fL Nucleated RBC Absolute Count (auto) 0.02 K/uL Nucleated Red Blood Cells % 0.1 % Sodium Level 140 mmol/L Potassium Level 3.3 mmol/L Chloride Level 111 mmol/L Carbon Dioxide Level 24 mmol/L Anion Gap 5.0 mmol/L Blood Urea Nitrogen 16 mg/dl Creatinine 0.56 mg/dl Est Creatinine Clear Calc Drug Dose 56.5 ml/min Estimated GFR () 99.9 Estimated GFR (Non- 86.2 BUN/Creatinine Ratio 27.9 Random Glucose 107 mg/dl Calcium Level 7.1 mg/dl Magnesium Level 2.1 mg/dl Vancomycin Level Trough 6.2 mcg/ml Bedside Glucose 107 mg/dl Test 11/01/17 11:35 Bedside Glucose (other) 127 mg/dl
[2017-11-01] MEDS: AMIODARONE / D5W 200 ML IV SCH ×2 (17:50→23:23)
[2017-11-01] MEDS: VANCOMYCIN INJ 750 MG in SODIUM CHLORIDE 0.9% 250ML 250 ML IV SCH (21:25)
[2017-11-02] VITALS (11 sets, daily range): BP systolic 84–153; BP diastolic 44–81; PULSE 54–99; TEMP 37.3–38.1; O2SAT 91–100
[2017-11-02] MEDS: PIPERACILL/TAZOBAC IV 3.375 GM in DEXTROSE 5% 100ML IV SCH ×2 (01:13→08:05)
[2017-11-02] MEDS: PROPOFOL IV EMULSION 10 MG/ML 100 ML VIAL IV PRN (01:15)
[2017-11-02] MEDS: LEValbuterol HFA 15GM INHALER INH SCH ×2 (02:20→07:22)
[2017-11-02] MEDS: IPRATROPIUM BROMIDE HFA INHALER INH SCH ×2 (02:20→07:23)
[2017-11-02] MEDS: NORMOSOL R 1,000 ML IV SCH ×2 (04:25→12:41)
[2017-11-02] MEDS: HEPARIN SOD 5000 UNIT/0.5 ML CARP SQ SCH ×2 (06:10→12:42)
[2017-11-02 07:03] LABS: CALCIUM 6.8 mg/dl (8.5-10.1); CREATININE 0.54 mg/dl (0.60-1.20); POTASSIUM 3.2 mmol/L (3.5-5.1)
[2017-11-02 07:10] LABS: HEMATOCRIT 30.5 % (37-47); HEMOGLOBIN 9.8 g/dL (12.0-16.0); MEAN CELL VOLUME 80.9 fL (80-100); MEAN CORPUSCULAR HGB CONC 32.1 g/dl (32-36); MEAN PLATELET VOLUME 11.8 fL (7.4-10.4); PLATELET COUNT 90 K/uL (130-400); RED CELL DISTRIBUTION WIDTH CV 18.1 % (11.5-14.5); RED CELL DISTRIBUTION WIDTH SD 53.6 fL (36.4-46.3); WHITE BLOOD COUNT 12.61 K/uL (4.8-10.8)
--- NOTE | 2017-11-02 07:59 | DIAGNOSTIC IMAGING REPORT ---
CHEST ONE VIEW PORTABLE CLINICAL HISTORY: Pneumonia COMPARISON STUDY: 11/01/2017 FINDINGS: There is an endotracheal tube positioned approximately 2 cm above the ho. There is a left subclavian central venous catheter. There is a nasogastric tube which passes in the stomach. The heart is normal in size. There are progressive right mid and lower lung zone airspace opacities. There is persistent left lower lobe atelectasis/consolidation. Small pleural effusions are suspected.[ IMPRESSION: 1. Progressive right middle lower lung zone airspace opacities. This could represent progressive asymmetric edema, or a worsening pneumonia. 2. Persistent left lower lobe atelectasis/consolidation 3. Satisfactory positioning of the lines and tubes Electronically signed by: Donn Cid M.D. 11/02/2017 7:57 AM Dictated Date/Time: 11/02/2017 7:55 AM
[2017-11-02] MEDS: LANSOPRAZOLE SOLUTAB 30 MG PO SCH (08:05)
[2017-11-02] MEDS: VANCOMYCIN INJ 750 MG in SODIUM CHLORIDE 0.9% 250ML 250 ML IV SCH (12:41)
--- NOTE | 2017-11-02 12:59 | Progress Note ---
Internal Med Progress Note Date of Service: Nov 02, 2017. Provider Documentation: SUBJECTIVE: pt remains intubated, sedation weaned off eyes are open , occasionally moving both hand Pt's -Jason Solis , Son -Herber Solis and Pt's caregiver Maile present in pt's room ICU 10 met with the family by myself , veneer department manager Dr Baxter and Palliative Care Nurse Milagros Marin family is updated regarding the poor out come -if continued with life support - pt will need tracheostomy , Feeding tube placement bedbound with risk of aspiration , pressure sores -very poor quality of life with no good out come offered for comfort care -with extubation followed by continue supportive care for pain /SOB /discomfort agreed for Extubation followed by comfort care Pt is ordered to be extubated OBJECTIVE: Vital Signs-as noted below Exam: General-elderly female , frail , cachectic, eyes open , unable to follow command Eyes-sclera non icteric ENT-ET tube in place , thick copious secretions Lungs-+ rales , crackles Heart-regular S1/S2 Abdomen-soft, Extremities-no rash or deformity Neuro-awake , moving all limbs Lab data as noted below. 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 presented with respiratory failure -tachypnea/hypoxemia -due to aspiration pneumonia sebastian aspiration noted by Nursing during meal required mechanical ventilation for respiratory support Very poor prognosis with End stage status with severe sepsis , multi organ failure After Family Meeting -family is agreeable to extubate and comfort care SEVERE SEPSIS /WITH SEPTIC SHOCK ON IV PRESSORS /HYPOTENSION : due to aspiration pneumonia-leading to respiratory failure required pressors marked leukocytosis , lactic acid level improved with IV hydration on IV Vancomycin /Zosyn very poor prognosis pt will be on comfort care S/p extubation today PAROXYSMAL AFIB : possible due to acute illness, respiratory failure /severe sepsis continued with IV Amiodarone gtt prognosis remains very poor ADVANCED DEMENTIA : was non verbal /minimally communicative as per NH report currently intubated on pressors for severe sepsis very poor out come DVT PROPHYLAXIS Sub q heparin CODE STATUS : discussed with Son over phone -updated regarding cardiac arrhythmia , no evidence of improvement remains on vent support any event of fatal cardiac arrhythmia , cardiac arrest will be terminal for the patient Doing CPR , shock with definitely cause severe trauma to pt -including broken ribs , punctured lungs Son willing to changed to code status -not to resuscitate if pt developed cardiac arrest will cont the current supportive care as it is CODE STATUS CHANGED TO DNR/DNI DISPOSITION very poor prognosis on comfort care Palliative care input appreciated Extubated today -transition to comfort care Vital Signs: Date Time Temp Pulse Resp B/P (MAP) Pulse Ox O2 Delivery O2 Flow Rate FiO2 11/02/17 12:00 Mechanical Ventilator 40 11/02/17 12:00 38.1 76 14 114/65 (81) 96 CPAP 40 Mechanical Ventilator 11/02/17 11:05 40 11/02/17 10:23 82 12 143/81 (101) 95 CPAP 40 Mechanical Ventilator 11/02/17 10:05 40 11/02/17 08:00 Mechanical Ventilator 40 11/02/17 08:00 54 20 112/54 (73) 96 Mechanical Ventilator 40 11/02/17 08:00 40 11/02/17 08:00 Mechanical Ventilator 50 11/02/17 07:26 50 11/02/17 06:00 37.8 64 20 131/74 (93) 99 Mechanical Ventilator 50 11/02/17 05:25 50 11/02/17 05:08 37.9 87 16 121/73 (89) 98 Mechanical Ventilator 50 11/02/17 04:00 37.9 71 17 119/58 (78) 97 Mechanical Ventilator 50 11/02/17 04:00 Mechanical Ventilator 50 11/02/17 04:00 50 11/02/17 03:00 37.8 71 20 105/57 (73) 97 Mechanical Ventilator 50 11/02/17 02:20 50 11/02/17 02:00 37.8 79 18 118/75 (89) 98 Mechanical Ventilator 50 11/02/17 01:00 37.8 59 20 85/44 (58) 97 Mechanical Ventilator 50 11/02/17 00:00 Mechanical Ventilator 50 11/02/17 00:00 50 11/02/17 00:00 37.6 61 20 84/49 (61) 100 Mechanical Ventilator 50 11/01/17 22:37 50 11/01/17 22:00 55 20 76/41 (53) 100 Mechanical Ventilator 50 11/01/17 20:28 50 11/01/17 20:00 81 20 94/50 (65) 100 Mechanical Ventilator 50 11/01/17 20:00 99 Mechanical Ventilator 11/01/17 20:00 50 11/01/17 18:30 50 11/01/17 18:00 76 20 93/50 (64) 96 Mechanical Ventilator 50 11/01/17 16:00 50 11/01/17 16:00 100 Mechanical Ventilator 11/01/17 16:00 37.0 54 20 94/58 (70) 100 Mechanical Ventilator 50 11/01/17 13:52 50 11/01/17 13:45 37.7 80 100 11/01/17 13:35 37.7 71 123/82 (96) 100 11/01/17 13:30 37.7 75 123/82 (96) 100 11/01/17 13:15 37.7 64 20 Lab Results: Results Past 24 Hours Test 11/02/17 05:17 11/02/17 06:03 Range/Units Blood Gas Sample Site L Radial Bedside Blood Gas pH (LAB) 7.47 7.35-7.45 Bedside Blood Gas pCO2 (LAB) 31 35-46 mmHg Bedside Blood Gas pO2 (LAB) 54 80-95 mmHg Bedside Blood Gas HCO3 (LAB) 22 19-24 meq/L Bedside Blood Gas Total CO2 23 24-31 mEq/l Bedside Blood Gas Base Excess (LAB) -1.0 -9-1.8 meq/L Bedside Blood Gas O2 Saturation 90.0 90-95 % Dav Test NA Oxygen Delivery Device Ventilator Bedside Oxygen Rate (breaths/min) 20 Blood Gas Minute Ventilation 9.7 Bedside FiO2 50 % Blood Gas Tidal Volume 450 Blood Gas PEEP 8 White Blood Count 12.61 4.8-10.8 K/uL Red Blood Count 3.77 4.2-5.4 M/uL Hemoglobin 9.8 12.0-16.0 g/dL Hematocrit 30.5 37-47 % Mean Corpuscular Volume 80.9 80-100 fL Mean Corpuscular Hemoglobin 26.0 25-34 pg Mean Corpuscular Hemoglobin Concent 32.1 32-36 g/dl RDW Standard Deviation 53.6 36.4-46.3 fL RDW Coefficient of Variation 18.1 11.5-14.5 % Platelet Count 90 130-400 K/uL Mean Platelet Volume 11.8 7.4-10.4 fL Platelet Estimate DECREASED Sodium Level 140 136-145 mmol/L Potassium Level 3.2 3.5-5.1 mmol/L Chloride Level 108 98-107 mmol/L Carbon Dioxide Level 24 21-32 mmol/L Anion Gap 7.0 3-11 mmol/L Blood Urea Nitrogen 12 7-18 mg/dl Creatinine 0.54 0.60-1.20 mg/dl Est Creatinine Clear Calc Drug Dose 62.4 ml/min Estimated GFR () 101.1 Estimated GFR (Non- 87.3 BUN/Creatinine Ratio 22.3 10-20 Random Glucose 121 70-99 mg/dl Calcium Level 6.8 8.5-10.1 mg/dl Phosphorus Level 0.8 2.5-4.9 mg/dl Magnesium Level 2.1 1.8-2.4 mg/dl
[2017-11-02] MEDS ORDERED: MoRPHine SULFATE 2 MG/ML CARP IV STA (13:05)
[2017-11-02] MEDS ORDERED: MoRPHine SULFATE 2 MG/ML CARP ONE (13:08)
--- NOTE | 2017-11-02 13:54 | Palliative Care Consultation ---
Consultation Date of Consultation: Nov 02, 2017. Requesting Physician: Dr. Rivera Attending Physician: Dr. Rivera Reason for Consultation: Goals of care History of Present Illness This 88 year old female patient with PMH advanced/end-stage dementia, CAD, hypothyroidism, presented to the hospital after presumed aspiration event at the longterm in which she resides. She was transferred to ICU after deteriorating quickly and required intubation. She was noted to have a great deal of secretions in her airway including some that were dried and old appearing. She became hypotensive as well. Patient has remained in ICU now for 3 -4 days and has not been able to be liberated from the ventilator due to poor mental status (not following commands, not tracking with eyes, etc) and excessive secretions which patient will not likely be able to manage. She has signs of pneumonia on CXR so she is on abx. Family meeting to be held today to decide whether or not we will continue ventilation with possibility of trach and PEG vs. terminal extubation and comfort measures only given her advanced age and end-stage dementia. Palliative care is consulted. We had a lengthy meeting in ICU room 110 with patient's son Herber, caregiver/ friend Maile, and patient's . Dr. Rivera and Kalen were present as well and gave a recap of patient's current condition. We discussed options of care: continued ventilation with eventual trach and PEG vs. extubation with no plan of reintubation and pursuing comfort measures only. After lengthy discussion, family opted for extubation with no plans for reintubation. We will keep patient as comfortable as possible and see how she does. See plan below. Past Medical/Surgical History Medical History: Dementia, advanced CAD Hypothyroidism Social History Smoking Status: Unknown if Ever Smoked Drug Use: none Occupation Status: retired Review of Systems unable to obtain ROS due to intubation/patient condition Allergies Coded Allergies: No Known Allergies (Unverified , 10/30/17) Medications Current Inpatient Medications Medications (Trade) Dose Ordered Sig/Chase Route Start Time Stop Time Status Last Admin Dose Admin Morphine Sulfate (MoRPHine SULFATE INJ) 1 mg NOW STAT IV 11/02/17 13:05 11/02/17 13:06 UNV Scopolamine (Transderm-Scop Patch) 1.5 mg Q72H TD 11/02/17 13:30 12/02/17 13:29 UNV Miscellaneous (Remove Transderm-Scop Patch) 1 ea Q72H N/A 11/05/17 13:30 12/05/17 13:29 UNV Miscellaneous Information (Check Scopolamine Patch Placement) 1 ea QS N/A 11/02/17 16:00 12/02/17 15:59 UNV Atropine Sulfate (Atropine Sulfate 1% Oph Soln) 2 drops Q1H PRN OP 11/02/17 13:30 12/02/17 13:29 UNV Lorazepam (Ativan Inj) 0.5 mg Q4H PRN IV 11/02/17 13:30 12/02/17 13:29 UNV Morphine Sulfate (MoRPHine SULFATE INJ) 2 mg Q1H PRN IV 11/02/17 13:30 11/16/17 13:29 UNV Physical Exam Date Time Temp Pulse Resp B/P (MAP) Pulse Ox O2 Delivery O2 Flow Rate FiO2 11/02/17 12:00 Mechanical Ventilator 40 11/02/17 12:00 38.1 76 14 114/65 (81) 96 CPAP 40 Mechanical Ventilator 11/02/17 11:05 40 11/02/17 10:23 82 12 143/81 (101) 95 CPAP 40 Mechanical Ventilator 11/02/17 10:05 40 11/02/17 08:00 Mechanical Ventilator 40 11/02/17 08:00 54 20 112/54 (73) 96 Mechanical Ventilator 40 11/02/17 08:00 40 11/02/17 08:00 Mechanical Ventilator 50 11/02/17 07:26 50 11/02/17 06:00 37.8 64 20 131/74 (93) 99 Mechanical Ventilator 50 11/02/17 05:25 50 11/02/17 05:08 37.9 87 16 121/73 (89) 98 Mechanical Ventilator 50 11/02/17 04:00 37.9 71 17 119/58 (78) 97 Mechanical Ventilator 50 11/02/17 04:00 Mechanical Ventilator 50 11/02/17 04:00 50 11/02/17 03:00 37.8 71 20 105/57 (73) 97 Mechanical Ventilator 50 11/02/17 02:20 50 11/02/17 02:00 37.8 79 18 118/75 (89) 98 Mechanical Ventilator 50 11/02/17 01:00 37.8 59 20 85/44 (58) 97 Mechanical Ventilator 50 11/02/17 00:00 Mechanical Ventilator 50 11/02/17 00:00 50 11/02/17 00:00 37.6 61 20 84/49 (61) 100 Mechanical Ventilator 50 11/01/17 22:37 50 11/01/17 22:00 55 20 76/41 (53) 100 Mechanical Ventilator 50 11/01/17 20:28 50 11/01/17 20:00 81 20 94/50 (65) 100 Mechanical Ventilator 50 11/01/17 20:00 99 Mechanical Ventilator 11/01/17 20:00 50 11/01/17 18:30 50 11/01/17 18:00 76 20 93/50 (64) 96 Mechanical Ventilator 50 11/01/17 16:00 50 11/01/17 16:00 100 Mechanical Ventilator 11/01/17 16:00 37.0 54 20 94/58 (70) 100 Mechanical Ventilator 50 11/01/17 13:52 50 11/01/17 13:45 37.7 80 100 11/01/17 13:35 37.7 71 123/82 (96) 100 General Appearance: no apparent distress, + cachetic, + thin, + pertinent finding (frail and elderly) ENT: hearing grossly normal Neck: supple, no JVD Respiratory: no respiratory distress, no accessory muscle use, + decreased breath sounds, + pertinent finding (on mechanical ventilator ) Cardiovascular: regular rate, rhythm, no edema Abdomen: normal bowel sounds, soft Neurologic/Psychiatric: alert, + pertinent finding (does not follow commands) Laboratory Results Last 24 Hours Test 11/02/17 05:17 11/02/17 06:03 Blood Gas Sample Site L Radial Bedside Blood Gas pH (LAB) 7.47 Bedside Blood Gas pCO2 (LAB) 31 mmHg Bedside Blood Gas pO2 (LAB) 54 mmHg Bedside Blood Gas HCO3 (LAB) 22 meq/L Bedside Blood Gas Total CO2 23 mEq/l Bedside Blood Gas Base Excess (LAB) -1.0 meq/L Bedside Blood Gas O2 Saturation 90.0 % Dav Test NA Oxygen Delivery Device Ventilator Bedside Oxygen Rate (breaths/min) 20 Blood Gas Minute Ventilation 9.7 Bedside FiO2 50 % Blood Gas Tidal Volume 450 Blood Gas PEEP 8 White Blood Count 12.61 K/uL Red Blood Count 3.77 M/uL Hemoglobin 9.8 g/dL Hematocrit 30.5 % Mean Corpuscular Volume 80.9 fL Mean Corpuscular Hemoglobin 26.0 pg Mean Corpuscular Hemoglobin Concent 32.1 g/dl RDW Standard Deviation 53.6 fL RDW Coefficient of Variation 18.1 % Platelet Count 90 K/uL Mean Platelet Volume 11.8 fL Platelet Estimate DECREASED Sodium Level 140 mmol/L Potassium Level 3.2 mmol/L Chloride Level 108 mmol/L Carbon Dioxide Level 24 mmol/L Anion Gap 7.0 mmol/L Blood Urea Nitrogen 12 mg/dl Creatinine 0.54 mg/dl Est Creatinine Clear Calc Drug Dose 62.4 ml/min Estimated GFR () 101.1 Estimated GFR (Non- 87.3 BUN/Creatinine Ratio 22.3 Random Glucose 121 mg/dl Calcium Level 6.8 mg/dl Phosphorus Level 0.8 mg/dl Magnesium Level 2.1 mg/dl Assessment & Plan Palliative Performance Scale: 20 % Problem list: Excessive secretions End-stage dementia Acute respiratory failure Aspiration risk Severe sepsis Goals of care (Z51.5) Palliative care recs: discussed with patient's son, caregiver/friend, , Dr. Higuera and Dr. Rivera. -Patient was made DNR last evening. -After discussion, plan will be for terminal extubation with NO plan for reintubation. Family decided against aggressive measures such as trache/PEG. -If patient does okay after extubation, she may have some time left in which case she can be transferred to SNF. manager pest already working with family who chose [facility]. -If patient rapidly declines and is not stable for transfer out of hospital, could possibly be GIP hospice candidate. Case management to follow. -Should patient be cognisant enough to take PO, would try pureed foods and small sips for comfort feeding. Uncertain if she will be able to. -Use oxygen via nasal cannula or oxymask for comfort. -Recommend Roxanol 5mg PO Q3h PRN pain or SOB. Can be titrated according to patient's needs. -Please order scopolamine patch 1.5mg TD Q72h. Atropine 1% oph soln 4 drops SL Q1h PRN secretions as well. Thank you kindly for this consult. I will follow as needed.
[2017-11-02] MEDS ORDERED: SCOPOLAMINE 1.5 MG TDSY TD SCH (14:00)
[2017-11-02] MEDS: MoRPHine SULFATE 2 MG/ML CARP IV PRN ×2 (14:52→22:04)
[2017-11-02] MEDS: CHECK SCOPOLAMINE PATCH PLACEMENT SCH ×2 (15:53→23:59)
[2017-11-02] MEDS: ATROPINE SULFATE 1% OP SOLN 5 ML BTL OP PRN ×5 (15:54→21:26)
[2017-11-02] MEDS: LORAZEPAM INJ 0.5 MG in SYRINGE 0.75 ML IV PRN (15:55)
--- NOTE | 2017-11-02 17:03 | Critical Care Progress Note ---
Critical Care Progress Note Date of Service Nov 02, 2017. Attending Dr. Higuera Subjective Patient tolerated CPAP off sedation. She was quite comfortable, no gagging on the ET tube. After an extensive discussion with the family (, son and friend), they decided they would not opt for a tracheostomy and chose to extubate her and focus on comfort care only. Patient extubated Objective General: Elderly female, awake, comfortable Heent: NC/AT, ET tube Lungs: extensive b/l rhonchi CVS: S1S2 reg Abd: Soft, non-distended Ext: No edema STRUCTURAL MANAGER: Opens eyes, moves both sides, non-verbal Assessment & Plan Problems: Acute respiratory failure Bronchopneumonia A-fib with RVR Dementia CAD Hypothyroidism Advanced dementia, in terminal stages. In respiratory failure secondary to inability to manage her secretions The family realizes that this is not a curable condition and will likely be a recurrent issue and opted for comfort measures at this stage. They would have not agreed to a tracheostomy. Patient extubated, I can hear already some gurgling Scopolamine patch applied. Prn Morphine DNR Critical care time spent with the patient, discussing with the family and consultants, excluding procedures greater than 35 minutes Consults & Procedures Consultants: Problems: Acute respiratory failure Bronchopneumonia Dementia CAD Hypothyroidism Plan: STRUCTURAL MANAGER: Sedation with Propofol for now. Tried Precedex but developed significant bradycardia Fentanyl Avoid benzos Daily sedation vacation Resp: Vent support Elevate head Pulmonary toilet Very high chance of weaning failure, family was made aware CVS: Continue IV fluids Pressor support Hold antihypertensives Continue ASA Renal: IV fluids ID: Continue broad spectrum Abx. On Zosyn, Vanco and Levaquin Follow up cultures, growing Staph in the sputum. Endo: Continue Synthroid DVT prophylaxis: Heparin SC Prognosis is poor I had an extensive discussion with the family at the bedside, I explained them the situation, the prognosis. They are aware of the therapeutic plan, as well as the option of palliative care, which in my opinion is reasonable Critical care time spent with the patient, discussing with the family and consultants, excluding procedures greater than 35 minutes Procedures: Endotracheal intubation - 10/30/17 Left SC TLC - 10/30/17 Extubation 11/02/17 Data Medications: Current Inpatient Medications Medications (Trade) Dose Ordered Sig/Chase Route Start Time Stop Time Status Last Admin Dose Admin Scopolamine (Transderm-Scop Patch) 1.5 mg Q72H TD 11/02/17 14:00 12/02/17 13:59 11/02/17 14:14 1.5 MG Miscellaneous (Remove Transderm-Scop Patch) 1 ea Q72H N/A 11/05/17 13:59 12/05/17 13:58 Miscellaneous Information (Check Scopolamine Patch Placement) 1 ea QS N/A 11/02/17 16:00 12/02/17 15:59 11/02/17 15:53 1 EA Atropine Sulfate (Atropine Sulfate 1% Oph Soln) 2 drops Q1H PRN OP 11/02/17 13:30 12/02/17 13:29 11/02/17 15:54 2 DROPS Lorazepam (Ativan Inj) 0.5 mg Q4H PRN IV 11/02/17 13:30 12/02/17 13:29 Morphine Sulfate (MoRPHine SULFATE INJ) 2 mg Q1H PRN IV 11/02/17 13:30 11/16/17 13:29 11/02/17 14:52 2 MG Lorazepam 0.5 mg/ Syringe 1 ml @ 1 mls/min Q4H PRN IV 11/02/17 15:30 12/02/17 15:29 11/02/17 15:55 1 MLS/MIN Vital Signs: Date Time Temp Pulse Resp B/P (MAP) Pulse Ox O2 Delivery O2 Flow Rate FiO2 11/02/17 14:58 37.3 99 30 153/77 (102) 91 Mask 10.0 11/02/17 12:00 Mechanical Ventilator 40 11/02/17 12:00 38.1 76 14 114/65 (81) 96 CPAP 40 Mechanical Ventilator 11/02/17 11:05 40 11/02/17 10:23 82 12 143/81 (101) 95 CPAP 40 Mechanical Ventilator 11/02/17 10:05 40 11/02/17 08:00 Mechanical Ventilator 40 11/02/17 08:00 54 20 112/54 (73) 96 Mechanical Ventilator 40 11/02/17 08:00 40 11/02/17 08:00 Mechanical Ventilator 50 11/02/17 07:26 50 11/02/17 06:00 37.8 64 20 131/74 (93) 99 Mechanical Ventilator 50 11/02/17 05:25 50 11/02/17 05:08 37.9 87 16 121/73 (89) 98 Mechanical Ventilator 50 11/02/17 04:00 37.9 71 17 119/58 (78) 97 Mechanical Ventilator 50 11/02/17 04:00 Mechanical Ventilator 50 11/02/17 04:00 50 11/02/17 03:00 37.8 71 20 105/57 (73) 97 Mechanical Ventilator 50 11/02/17 02:20 50 11/02/17 02:00 37.8 79 18 118/75 (89) 98 Mechanical Ventilator 50 11/02/17 01:00 37.8 59 20 85/44 (58) 97 Mechanical Ventilator 50 11/02/17 00:00 Mechanical Ventilator 50 11/02/17 00:00 50 11/02/17 00:00 37.6 61 20 84/49 (61) 100 Mechanical Ventilator 50 11/01/17 22:37 50 11/01/17 22:00 55 20 76/41 (53) 100 Mechanical Ventilator 50 11/01/17 20:28 50 11/01/17 20:00 81 20 94/50 (65) 100 Mechanical Ventilator 50 11/01/17 20:00 99 Mechanical Ventilator 11/01/17 20:00 50 11/01/17 18:30 50 11/01/17 18:00 76 20 93/50 (64) 96 Mechanical Ventilator 50 Laboratory Results: Last 24 Hours Test 11/02/17 05:17 11/02/17 06:03 Blood Gas Sample Site L Radial Bedside Blood Gas pH (LAB) 7.47 Bedside Blood Gas pCO2 (LAB) 31 mmHg Bedside Blood Gas pO2 (LAB) 54 mmHg Bedside Blood Gas HCO3 (LAB) 22 meq/L Bedside Blood Gas Total CO2 23 mEq/l Bedside Blood Gas Base Excess (LAB) -1.0 meq/L Bedside Blood Gas O2 Saturation 90.0 % Dav Test NA Oxygen Delivery Device Ventilator Bedside Oxygen Rate (breaths/min) 20 Blood Gas Minute Ventilation 9.7 Bedside FiO2 50 % Blood Gas Tidal Volume 450 Blood Gas PEEP 8 White Blood Count 12.61 K/uL Red Blood Count 3.77 M/uL Hemoglobin 9.8 g/dL Hematocrit 30.5 % Mean Corpuscular Volume 80.9 fL Mean Corpuscular Hemoglobin 26.0 pg Mean Corpuscular Hemoglobin Concent 32.1 g/dl RDW Standard Deviation 53.6 fL RDW Coefficient of Variation 18.1 % Platelet Count 90 K/uL Mean Platelet Volume 11.8 fL Platelet Estimate DECREASED Sodium Level 140 mmol/L Potassium Level 3.2 mmol/L Chloride Level 108 mmol/L Carbon Dioxide Level 24 mmol/L Anion Gap 7.0 mmol/L Blood Urea Nitrogen 12 mg/dl Creatinine 0.54 mg/dl Est Creatinine Clear Calc Drug Dose 62.4 ml/min Estimated GFR () 101.1 Estimated GFR (Non- 87.3 BUN/Creatinine Ratio 22.3 Random Glucose 121 mg/dl Calcium Level 6.8 mg/dl Phosphorus Level 0.8 mg/dl Magnesium Level 2.1 mg/dl
[2017-11-02] MEDS: LORAZEPAM 2 MG/ML 1 ML VIAL IV PRN (22:41)
[2017-11-03] MEDS: MoRPHine SULFATE 2 MG/ML CARP IV PRN ×6 (00:06→20:08)
[2017-11-03] MEDS ORDERED: VANCOMYCIN TROUGH ONE (02:00)
[2017-11-03] MEDS: LORAZEPAM INJ 0.5 MG in SYRINGE 0.75 ML IV PRN (05:48)
[2017-11-03 07:30] VITALS: BP 117/64; PULSE 71; TEMP 36.7; O2SAT 96
[2017-11-03] MEDS: CHECK SCOPOLAMINE PATCH PLACEMENT SCH ×2 (07:40→15:48)
[2017-11-03] MEDS: LORAZEPAM 2 MG/ML 1 ML VIAL IV PRN ×2 (07:45→19:03)
[2017-11-03] MEDS: ATROPINE SULFATE 1% OP SOLN 5 ML BTL OP PRN (07:48)
--- NOTE | 2017-11-03 19:05 | Progress Note ---
Internal Med Progress Note Date of Service: Nov 03, 2017. Provider Documentation: SUBJECTIVE: remains in comfort care OBJECTIVE: Vital Signs-as noted below minimum exam due to comfort care ; Exam: General-elderly female , frail , cachectic, , no sign of distress Eyes-sclera non icteric Abdomen-soft, Extremities-no rash or deformity Neuro-lethargic Lab data as noted below. ASSESSMENT & PLAN: ACUTE HYPOXEMIC RESPIRATORY FAILURE : -After family discussion -pt is s/p extubated yesterday day - on comfort care /Hospice appreciate Help form Palliative care and Conveyor Attendant presented with respiratory failure -tachypnea/hypoxemia -due to aspiration pneumonia sebastian aspiration noted by Nursing during meal required mechanical ventilation for respiratory support Very poor prognosis with End stage status with severe sepsis , multi organ failure After Family Meeting -family is agreeable to extubate and comfort care SEVERE SEPSIS /WITH SEPTIC SHOCK ON IV PRESSORS /HYPOTENSION : pt remains in comfort care S/p extubation today PAROXYSMAL AFIB : possible due to acute illness, respiratory failure /severe sepsis prognosis remains very poor ADVANCED DEMENTIA : at baseline non verbal /minimally communicative as per NH report presented with aspiration pneumonia /sepsis on comfort care very poor out come CODE STATUS DNR/DNI DISPOSITION very poor prognosis on comfort care Palliative care input appreciated pt may during this hospital stay Vital Signs: Date Time Temp Pulse Resp B/P (MAP) Pulse Ox O2 Delivery O2 Flow Rate FiO2 11/03/17 16:00 Oxymask 3.0 11/03/17 08:52 Oxymask 3.0 11/03/17 00:00 Oxymask 4.0
[2017-11-03] MEDS ORDERED: NURSING VERBAL MED ORDER ONE (22:15)
[2017-11-04] MEDS: CHECK SCOPOLAMINE PATCH PLACEMENT SCH ×4 (00:04→23:41)
[2017-11-04] MEDS: MoRPHine SULFATE 2 MG/ML CARP IV PRN ×4 (05:10→15:42)
[2017-11-04] MEDS: LORAZEPAM 2 MG/ML 1 ML VIAL IV PRN ×2 (07:33→15:41)
[2017-11-04] MEDS ORDERED: LORAZEPAM 2 MG/ML 1 ML VIAL IV PRN (15:30)
[2017-11-04] MEDS ORDERED: FENTANYL 12 MCG/HR TDSY TD SCH (15:30)
[2017-11-04] MEDS ORDERED: LORAZEPAM 1 MG TAB SL PRN (15:30)
--- NOTE | 2017-11-04 15:39 | Progress Note ---
Internal Med Progress Note Date of Service: Nov 04, 2017. Provider Documentation: SUBJECTIVE: remains in comfort care obtunded , occasion arm/hand movement noted on Oxy mask getting intermittent IV Morphine for evidence of discomfort /SOB OBJECTIVE: Vital Signs-as noted below minimum exam due to comfort care ; Exam: General-elderly female , frail , cachectic, , on Oxy mask , no apparent distress noted Abdomen-soft, Extremities-no rash or deformity Neuro-obtunded , Lab data as noted below. ASSESSMENT & PLAN: ACUTE HYPOXEMIC RESPIRATORY FAILURE : presented with respiratory failure -tachypnea/hypoxemia -due to aspiration pneumonia sebastian aspiration noted by Nursing during meal at [facility] required mechanical ventilation for respiratory support -Aspiration pneumonia with Sepsis , failure to wean off Mechanical ventilation at baseline pt was bed ridden , non verbal Very poor prognosis with End stage status with severe sepsis , multi organ failure Palliative care consulted After Family Meeting -family is agreeable to extubate and comfort care -pt is s/p extubation on 11/02/17 on comfort care /Hospice appreciate Help form Palliative care and Cow Tender SEVERE SEPSIS /WITH SEPTIC SHOCK ON IV PRESSORS /HYPOTENSION : multi organ failure with poor chance of reasonable recovery at baseline pt had advance dementia -in NH for past 2 years / was bedbound , non verbal pt remains in comfort care S/p extubation today PAROXYSMAL AFIB : possible due to acute illness, respiratory failure /severe sepsis prognosis remains very poor ADVANCED DEMENTIA : at baseline non verbal /minimally communicative as per NH report presented with aspiration pneumonia /sepsis on comfort care very poor out come DNR/DNI DISPOSITION very poor prognosis on comfort care so far pt remains stable on supportive care appropriate to Transition to custodial facility /OK with Hospice discuss with and Son -want pt to be in [facility] with Hospice Does not want pt to return to [facility] where she was before CM updated ordered for PO Roxanol SL ativan PRN for easy transition for discharge pt was very dysphagic at baseline , now remains obtunded , may not be able to swallow PO Roxanol Fentanyl Patch 12 mcg ordered Expected to be transferred to [facility] with Hospice tomorrow Vital Signs: Date Time Temp Pulse Resp B/P (MAP) Pulse Ox O2 Delivery O2 Flow Rate FiO2 11/04/17 08:00 3.0 11/04/17 00:00 Oxymask 3.0 11/03/17 16:00 Oxymask 3.0
[2017-11-04] MEDS ORDERED: SCOP1.5D2 TD (15:41)
[2017-11-04] MEDS ORDERED: RXNS10 PO (15:41)
[2017-11-04] MEDS ORDERED: ATV1 SL (15:41)
[2017-11-04] MEDS ORDERED: DRGTP12 TD (15:41)
[2017-11-04] MEDS ORDERED: ATROPS5 OP (15:41)
--- NOTE | 2017-11-04 15:45 | Discharge Instructions ---
Discharge Instructions Date of Service Nov 04, 2017. Admission Reason for Admission: Respiratory Failure, Acute Discharge Discharge Diagnosis / Problem: ACUTE HYPOXEMIC RESPIRATORTY FAILURE /SEPSIS/ COMFORT CARE HOSPICE Discharge Goals Goal(s): Decrease discomfort, Diagnostic testing, Therapeutic intervention Activity Recommendations Activity Level: Bedrest (HOSPICE ) . Additional Information Patient informed of condition: No (OBTUNDED /UNRESPONSIVE ) Advance Directives: Yes DNR: Yes Level of Care: Other (HOSPICE ) Communicable Disease: No Prognosis: Other (TERMINAL /END STAGE) Ashley Catheter: Yes Instructions / Follow-Up Instructions / Follow-Up CONTINUE COMFORT CARE/HOSPICE Current Hospital Diet Patient's current hospital diet: Diabetes Type 2 Diet, AHA Diet (Heart Healthy) Discharge Diet Recommended Diet: N/A Pending Studies Studies pending at discharge: no Laboratory Results Hemoglobin A1c Test 10/30/17 06:53 Range/Units Estimated Average Glucose 120 mg/dl Hemoglobin A1c 5.8 H 4.5-5.6 % Medical Emergencies . Who to Call and When: Medical Emergencies: If at any time you feel your situation is an emergency, please call 911 immediately. . Non-Emergent Contact Non-Emergency issues call your: Primary Care Provider . . "Provider Documentation" section prepared by Karissa Rivera. . Core Measure Problem Core Measures: None
[2017-11-04] MEDS: CHECK FENTANYL PATCH PLACEMENT SCH ×2 (16:00→23:41)
[2017-11-04] MEDS: MoRPHine SULFATE 5 MG/0.25 ML UDP PO PRN (16:55)
[2017-11-04] MEDS: ATROPINE SULFATE 1% OP SOLN 5 ML BTL OP PRN (19:27)
[2017-11-05] MEDS: MoRPHine SULFATE 5 MG/0.25 ML UDP PO PRN ×2 (03:29→07:45)
[2017-11-05] MEDS: CHECK FENTANYL PATCH PLACEMENT SCH (07:48)
[2017-11-05] MEDS: CHECK SCOPOLAMINE PATCH PLACEMENT SCH (07:48)
--- NOTE | 2017-11-05 11:04 | Progress Note ---
Progress Note Date of Service Nov 05, 2017. Progress Note Called in this morning due to patient ceasing to breath. I went into the room and examined the patient: Pupils dilated and non reactive to light. No spontaneous breathing. No heart sounds appreciated. Time of : 1030 Cause of : severe sepsis, aspiration pneumonia Contributing cause: paroxysmal a. fib and advanced dementia Patient was comfort measures; expected result. Family aware, to be coming in to see the patient in less than an hour.
--- NOTE | 2017-11-05 11:07 | Death Summary ---
Summary of Admission Date Oct 30, 2017 at 05:46 Date & Time of Nov 05, 2017. 1030 Cause of Severe Sepsis Aspiration Pneumonia Secondary Diagnoses paroxysmal A. Fib Advanced Dementia Hospital Course Patient presented with severe sepsis Likely secondary to aspiration pneumonia initially was placed in the ICU, intubated and mechanically ventilated. Multiorgan failure persisted, poor prognosis. Was decided to make patient comfort measures only. Patient ceased to breathe on 11/05/17 at 1030AM 11/05/17 Called in this morning due to patient ceasing to breathe. I went into the room and examined the patient: Pupils dilated and non reactive to light. No spontaneous breathing. No heart sounds appreciated. Time of : 1030 Cause of : severe sepsis, aspiration pneumonia Contributing cause: paroxysmal a. fib and advanced dementia Patient was comfort measures; expected result. Family aware, to be coming in to see the patient in less than an hour.
[2017-11-07] MEDS ORDERED: FENTANYL PATCH REMOVE & WASTE SCH (15:30)
== END 2017-11-05 10:30 | disposition expired | DRG 870 ==
LOC: EDBD 04:23 → C.EDA 04:24 → UNDOADMIN 05:46 → C.2T 05:46 → ENRESERV 06:10 → C.2T 08:21 → C.MSICU 08:21 → ENRESERV 11-02 13:53 → C.4E 11-02 14:00
PROVIDERS: ADMIT Internal Medicine; ATTEND Family Medicine
PROC: 5A1955Z Respiratory Ventilation, Greater than 96 Consecutive Hours (ICD-10-PCS; principal; 2017-10-30)
DX: A41.9 Sepsis, unspecified organism (principal); J69.0 Pneumonitis due to inhalation of food and vomit; J96.01 Acute respiratory failure with hypoxia; R65.21 Severe sepsis with septic shock; N17.9 Acute kidney failure, unspecified; Z51.5 Encounter for palliative care; Z66 Do not resuscitate; F03.90 Unspecified dementia, unspecified severity, without behavioral disturbance, psychotic disturbance, mood disturbance, and anxiety; I25.10 Atherosclerotic heart disease of native coronary artery without angina pectoris; E03.9 Hypothyroidism, unspecified; R73.9 Hyperglycemia, unspecified